=== PATIENT | male | born 1950 | race Caucasian/White ===

== ENCOUNTER 2024-05-02 11:21 | Day surgery (SDC) | payer MEDICARE, OTHER, SELFPAY ==
[2024-05-02] VITALS (7 sets, daily range): BP systolic 117–159; BP diastolic 50–77; BMI 25.9
[2024-05-02] MEDS: NSS 224 ML IV (12:06)
[2024-05-02 13:41] LABS: ACT-LR - POC 253 Seconds (116-155)
[2024-05-02] MEDS: NSS 1000 IV (14:03)
--- NOTE | 2024-05-02 14:21 | ITS.CL.CATH ---
Fitness Instructor - Catheterization
Cardiac Catheterization
Procedure Report:
CARDIAC CATHETERIZATION REPORT
Date of Procedure: 05/02/2024
Referring: Ye Majano M.D.
INDICATION: Multivessel coronary artery disease, ostial LAD stenosis.
PROCEDURE:
1. Left heart catheterization
2. Coronary angiography.
3. Successful IFR of the LAD.
A total of 33 minutes of procedural/moderate sedation was utilized. An independent medical record consultant was present to assist with and help manage the patient's level of consciousness and physiologic status.
ACCESS:
1. 6 [place]ican right radial artery using a modified Seldinger technique under ultrasound guidance. Ultrasound image obtained.
CATHETERS:
1. 5 [place]ican JR4.
2. 5 Mozambican JL 3.5 guiding catheter.
HEMODYNAMIC DATA
Weight (kg): 74.8
AO (s/d/x, mmHg): 122/62/85
LV (s/x mmHg): 124/11
LEFT VENTRICULOGRAPHY: Not performed.
CORONARY ANGIOGRAPHY
Dominance: Left.
Left Main: Short, broad, trifurcating vessel. There is no coronary artery disease.
LAD: Relatively small size vessel giving off 2 diagonals. The second diagonal is a significant vessel that supplies the majority of the anterolateral wall. There is a 70%, napkin ring lesion in the ostium of the artery. The proximal vessel is
densely calcified. There is an additional, 40% lesion in the proximal/mid vessel spanning the origin of the first diagonal. There is an 80-90% lesion in the origin of the major second diagonal.
Ramus: Small, diminutive vessel.
Circumflex: Large size, dominant vessel giving rise to 3 obtuse marginals then ending as a large left posterior descending artery that wraps around the apex. OM1 is a large vessel which bifurcates into an upper and lower branch and supplies the
majority of the lateral wall. There is a napkin ring, 80% lesion in the origin of the upper branch. There are stuttering, 80-90% lesions in the proximal margin of the lower branch of OM1. There is a subtotal, 90% lesion in the proximal margin of
the LPDA. There is a patent stent in the proximal circumflex.
RCA: Small size, nondominant vessel which is diffusely diseased in its proximal and midportion.
INTERVENTION(S)
1. Successful IFR of the LAD, demonstrating occlusive disease (IFR = 0.88).
Narrative:
The decision was made to perform physiologic testing. The diagnostic catheter was removed over a wire and exchanged for a(n) 5 Mozambican JL 3.5 guiding catheter. The guiding catheter was advanced into the ascending aorta and seated in the left main
coronary artery. Additional heparin was given to obtain an ACT greater than 250 seconds. An iFR wire was zeroed outside of the body, then inserted into the guiding sheath. The wire was advanced and the transducer was normalized just outside of the
guiding catheter tip. The wire was advanced into the mid LAD. Three iFR measurements were taken. The lesion was determined to be occlusive (0.88).
Closure Device: Vascular band.
Radiation (mGy): 276.34
DAP (cm2.Gy): 21.5493
Fluoroscopy time (minutes): 7.8
CONCLUSIONS
1. Left dominant circulation with an occlusive, 70% napkin ring lesion in the ostium of the LAD (IFR = 0.88) with an additional 40% lesion in the proximal and mid vessel and an 80-90% lesion in the origin of the major second diagonal, a patent
stent in the proximal circumflex, a napkin ring, 80% lesion in the origin of the upper branch of OM1, stuttering 80-90% lesions in the proximal margin of the lower branch of OM1 and a subtotal, 90% lesion in the proximal margin of the LPDA.
2. Normal filling pressures (LVEDP = 11 mmHg at 74.8 kg).
RECOMMENDATIONS:
1. Expectant management after cardiac catheterization via right radial approach.
2. Limited weight bearing on the right for one week.
3. Consultation with CT surgery regarding optimal revascularization strategy.
4. Continue aggressive secondary prevention. High-dose, high potency statin. Goal LDL <55.
5. Guideline directed medical therapy as hemodynamics will tolerate.
6. Stable for outpatient follow-up.
Copy to: Ye Majano M.D., Pan Moore D.O.
Kale Salamanca DO, FACC, FACP
== END 2024-05-02 17:00 | disposition home or self-care (01) ==
LOC: CATH 11:21
PROVIDERS: ATTENDING PHYSICIAN Internal Medicine Cardiovascular Disease; FAMILY PHYSICIAN Family Medicine; OTHER PHYSICIAN Internal Medicine Cardiovascular Disease
DX: I25.10 Atherosclerotic heart disease of native coronary artery without angina pectoris (principal); Z95.5 Presence of coronary angioplasty implant and graft; I25.84 Coronary atherosclerosis due to calcified coronary lesion
CPT/HCPCS: 93799; 99152; 99153; 85347; 93005; 93458; C1769; C1894; Q9967

== ENCOUNTER 2024-06-28 04:55 | Inpatient (IN) | payer MEDICARE, OTHER, SELFPAY ==
[2024-05-28 12:19] VITALS: BMI 26.0
[2024-05-28 13:03] LABS: Urine Albumin 1+ (Neg - Trace); Urine Bilirubin Negative (Negative); Urine Character Clear (Clear); Urine Color Yellow; Urine Glucose Negative (Negative); Urine Ketone 2+ (Negative); Urine Leukocyte 1+ (Negative); Urine Nitrite Negative (Negative); Urine Occult Blood Negative (Negative); Urine Specific Gravity 1.015 (<1.030); Urine Urobilinogen Negative (Neg - 1+)
[2024-05-28 13:11] LABS: INR 1.01; PT 13.6 Sec (11.4-14.6)
[2024-05-28 13:12] LABS: APTT 27.4 Sec (23.4-35.0)
[2024-05-28 13:26] LABS: ALT (SGPT) 48 U/L (0-50); AST (SGOT) 38 U/L (17-59); Albumin 4.3 g/dl (3.5-5.0); Alkaline Phosphatase 104 U/L (38-126); Blood Urea Nitrogen 19 mg/dl (9-20); Calcium 9.7 mg/dl (8.4-10.2); Carbon Dioxide 25 mmol/L (22-30); Chloride 100 mmol/L (98-107); Direct Bilirubin 0.2 mg/dl (0.0-0.4); Estimated Creatinine Clearance 76 ml/min; Glucose 85 mg/dl (70-99); Potassium 4.9 mmol/L (3.5-5.1); Sodium 134 mmol/L (135-145); Total Bilirubin 0.9 mg/dl (0.2-1.3); Total Protein 7.6 g/dl (6.3-8.2); eGFR > 60.00
[2024-05-28 13:28] LABS: % Basophils 0.1 % (0-2); % Eosinophils 1.5 % (0-6); % Immature Granulocytes 0.4 % (0-0.5); % Lymphocytes 26.6 % (20.5-51.1); % Monocytes 8.2 % (1.7-9.3); % Neutrophils 63.2 % (42.2-75.2); Absolute Eosinophils 0.1 10^3/uL (0-0.7); Absolute Lymphocytes 1.8 10^3/uL (1.2-3.4); Absolute Monocytes 0.6 10^3/uL (0.1-0.6); Absolute Neutrophils 4.2 10^3/uL (1.4-6.5); Hematocrit 43.6 % (39.0-52.0); Hemoglobin 14.7 g/dL (13.0-18.0); Mean Corp Hgb Conc. 33.7 g/dL (33.0-37.0); Mean Corpuscular Hgb 32.2 pg (27.0-31.0); Mean Corpuscular Volume 95.6 fL (80.0-94.0); Nucleated Red Blood Cells % 0 % (-); Platelet Count 224 10^3/uL (130-400); Red Blood Cell Count 4.56 10^6/uL (4.70-6.10); Red Cell Dist. Width 12.9 % (11.5-14.5); White Blood Cell Count 6.7 10^3/uL (4.8-10.8)
[2024-05-28 13:52] LABS: Urine Bacteria Few (Negative); Urine Red Blood Cell 0-2 /HPF (0-2)
[2024-05-28 13:53] LABS: Urine Granular Cast 0-2 /LPF (0); Urine Hyaline Cast 0-2 /LPF (0-2); Urine Mucus Few
--- NOTE | 2024-05-28 14:30 | CM ---
Met with and Mrs. Corral in [facility]. He states prior to admission he resides with his spouse in a two story home with one step to enter. He states he has a full flight of steps to get to bedroom/full bathroom. He states he has a powder room on
the first floor. He states prior to admission he was independent with ambulation and adls. He states he does not have any DME in the home. He states he has a prescription plan with [employer]. He states his spouse will be home to assist in his care
if needed. The discharge plan is to return home with his spouse and Transitional Care Nurse when medically stable.
We reviewed pre-op and post-op routines. We reviewed the shower instructions. He has the soap,written instructions and the Cardiothoracic Surgery Educational Booklet. We reviewed restrictions including sternal precautions and driving
restrictions. We also discussed a home visit by the Transitional Care Nurse. He is agreeable to a home visit. The plan is for CABG on June.
[2024-06-19 11:48] VITALS: BMI 26.0
[2024-06-19 12:24] LABS: Urine Albumin 1+ (Neg - Trace); Urine Bilirubin Negative (Negative); Urine Character Clear (Clear); Urine Color Yellow; Urine Glucose Negative (Negative); Urine Ketone Negative (Negative); Urine Leukocyte Negative (Negative); Urine Nitrite Negative (Negative); Urine Occult Blood Negative (Negative); Urine Specific Gravity 1.015 (<1.030); Urine Urobilinogen Negative (Neg - 1+)
[2024-06-19 12:33] LABS: % Basophils 0.2 % (0-2); % Immature Granulocytes 0.5 % (0-0.5); % Lymphocytes 17.1 % (20.5-51.1); % Monocytes 8.4 % (1.7-9.3); % Neutrophils 72.8 % (42.2-75.2); Absolute Eosinophils 0.1 10^3/uL (0-0.7); Absolute Immature Granulocytes 0.1 10^3/uL (0-0.05); Absolute Lymphocytes 2.3 10^3/uL (1.2-3.4); Absolute Monocytes 1.1 10^3/uL (0.1-0.6); Absolute Neutrophils 9.7 10^3/uL (1.4-6.5); Hematocrit 43.3 % (39.0-52.0); Hemoglobin 14.4 g/dL (13.0-18.0); Mean Corp Hgb Conc. 33.3 g/dL (33.0-37.0); Mean Corpuscular Hgb 32.1 pg (27.0-31.0); Mean Corpuscular Volume 96.4 fL (80.0-94.0); Mean Platelet Volume 9.8 fL (7.4-10.4); Nucleated Red Blood Cells % 0 % (-); Platelet Count 225 10^3/uL (130-400); Red Blood Cell Count 4.49 10^6/uL (4.70-6.10); White Blood Cell Count 13.2 10^3/uL (4.8-10.8)
[2024-06-19 12:44] LABS: ALT (SGPT) 56 U/L (0-50); AST (SGOT) 48 U/L (17-59); Albumin 4.2 g/dl (3.5-5.0); Alkaline Phosphatase 125 U/L (38-126); Blood Urea Nitrogen 24 mg/dl (9-20); Carbon Dioxide 28 mmol/L (22-30); Chloride 99 mmol/L (98-107); Direct Bilirubin 0.2 mg/dl (0.0-0.4); Estimated Creatinine Clearance 67 ml/min; Glucose 102 mg/dl (70-99); Potassium 5.3 mmol/L (3.5-5.1); Sodium 134 mmol/L (135-145); Total Bilirubin 0.6 mg/dl (0.2-1.3); Total Protein 7.6 g/dl (6.3-8.2); eGFR > 60.00
[2024-06-19 12:58] LABS: INR 0.93
[2024-06-19 13:54] LABS: Urine Bacteria Few (Negative); Urine Red Blood Cell 0-2 /HPF (0-2); Urine Sperm Seen; Urine White Cell 0-2 /HPF (0-5)
--- NOTE | 2024-06-19 14:06 | CM ---
Chart reviewed. Met with the patient and again in PAT. Reviewed preoperative and postoperative instructions and restrictions, along with showering guidelines. Patient has soaps already at home and refused 2 more. Patient is independent of
ADLS, lives with his in a 2 STH, 2 ORLIN, 0 DME. Patient is agreeable to a home visit by CT Transitional RN. Plan is for the patient to return home with CT Transitional RN.
[2024-06-28] VITALS (20 sets, daily range): BP systolic 81–146; BP diastolic 48–85; BMI 25.5
[2024-06-28] MEDS: LOPRESSOR 25 MG PO (05:27)
[2024-06-28] MEDS: PROTONIX 40 MG PO (05:27)
[2024-06-28] MEDS: MAGNESIUM OXIDE 500 MG PO (05:27)
[2024-06-28] MEDS: BACTROBAN 2% OINTMENT 1 APPLIC NASAL ×2 (05:28→20:51)
--- NOTE | 2024-06-28 06:00 | PTCARENOTE ---
pt arrived to CVICU for SDA CABG with dr Majano. pt was clipped and prepped, CHG clothes used, x2 CHG showers at home confirmed. all admission question answered and home meds reviewed. all jewelry removed. labs drawn and sent. pre op med given.
awaiting CVOR.
--- NOTE | 2024-06-28 06:02 | W.CVOR.SURPR ---
CVOR Surgeon Immed Pre Op
-
I have examined this patient prior to performance of the scheduled procedure.
The patient's condition is unchanged from the time of the dictated/written History and
Physical and the patient is able to undergo the scheduled procedure.
CABG + MATTHEW Clip
[2024-06-28 07:15] LABS: ACT+ - POC 101 Seconds (82-134)
[2024-06-28 07:26] LABS: Urine Albumin Negative (Neg - Trace); Urine Bilirubin Negative (Negative); Urine Character Clear (Clear); Urine Color Yellow; Urine Glucose Negative (Negative); Urine Ketone Negative (Negative); Urine Leukocyte Negative (Negative); Urine Nitrite Negative (Negative); Urine Occult Blood 1+ (Negative); Urine Urobilinogen Negative (Neg - 1+)
[2024-06-28 07:47] LABS: Urine Squamous Cell 0-2 /LPF (Few); Urine White Cell 0-2 /HPF (0-5)
[2024-06-28 08:41] LABS: ACT+ - POC 650 Seconds (82-134)
--- NOTE | 2024-06-28 09:09 | CM ---
Patient in OR today for CT Surgery.
Reviewed initial assessment. Pt. resides w/ spouse in a private, 2 st home w/ 2 ORLIN. Functionally, patient is indep. w/ ADLs, mobility without the use of any assisted device.
Antic. DC plan is for home w/ CT Transitional Care RN.
CM to follow.
[2024-06-28 09:28] LABS: ACT+ - POC 574 Seconds (82-134)
[2024-06-28 10:14] LABS: ACT+ - POC 502 Seconds (82-134)
[2024-06-28 10:29] LABS: ACT+ - POC 540 Seconds (82-134)
[2024-06-28 10:36] LABS: B.E. - POC 2.1 mmol/L; Glucose - POC 147 mg/dl (70-99); HCO3 - POC 27 mmol/L (21-28); Hematocrit - POC 27 % PCV (42-52); Hemodilution- POC Yes; Hemoglobin Calculated - POC 9.3; Ionized Calcium - POC 1.09 mmol/L (1.15-1.33); Lactate - POC 0.35 mmol/L (0.36-0.75); O2 Saturation %Calculated-POC 99.9 % (94-98); PCO2 - POC 40 mmHg (35-48); PO2 - POC 246 mmHg (83-108); POC Comment CPB; Potassium - POC 4.8 mmol/L (3.5-5.1); Sodium - POC 139 mmol/L (136-145); Specimen Type - POC Arterial; pH - POC 7.43 (7.35-7.45)
[2024-06-28 11:16] LABS: B.E. - POC 4.6 mmol/L; Glucose - POC 139 mg/dl (70-99); HCO3 - POC 31 mmol/L (21-28); Hematocrit - POC 25 % PCV (42-52); Hemodilution- POC Yes; Hemoglobin Calculated - POC 8.6; Ionized Calcium - POC 1.05 mmol/L (1.15-1.33); Lactate - POC < 0.30 mmol/L (0.36-0.75); PCO2 - POC 55 mmHg (35-48); PO2 - POC 456 mmHg (83-108); POC Comment CPB; Potassium - POC 5.3 mmol/L (3.5-5.1); Sodium - POC 137 mmol/L (136-145); Specimen Type - POC Arterial; pH - POC 7.36 (7.35-7.45)
[2024-06-28 11:16] LABS: B.E. - POC -1.9 mmol/L; Glucose - POC 97 mg/dl (70-99); HCO3 - POC 24 mmol/L (21-28); Hematocrit - POC 35 % PCV (42-52); Hemodilution- POC No; Hemoglobin Calculated - POC 11.7; Ionized Calcium - POC 1.22 mmol/L (1.15-1.33); Lactate - POC < 0.30 mmol/L (0.36-0.75); O2 Saturation %Calculated-POC 99.9 % (94-98); PCO2 - POC 42 mmHg (35-48); PO2 - POC 337 mmHg (83-108); POC Comment PRE; Potassium - POC 4.1 mmol/L (3.5-5.1); Sodium - POC 142 mmol/L (136-145); Specimen Type - POC Arterial; pH - POC 7.36 (7.35-7.45)
[2024-06-28 11:22] LABS: B.E. - POC -1.6 mmol/L; Glucose - POC 149 mg/dl (70-99); HCO3 - POC 23 mmol/L (21-28); Hematocrit - POC 28 % PCV (42-52); Hemodilution- POC Yes; Hemoglobin Calculated - POC 9.4; Ionized Calcium - POC 1.03 mmol/L (1.15-1.33); Lactate - POC 0.43 mmol/L (0.36-0.75); O2 Saturation %Calculated-POC 99.8 % (94-98); PCO2 - POC 38 mmHg (35-48); PO2 - POC 249 mmHg (83-108); POC Comment WARM; Potassium - POC 4.5 mmol/L (3.5-5.1); Sodium - POC 143 mmol/L (136-145); Specimen Type - POC Arterial; pH - POC 7.39 (7.35-7.45)
[2024-06-28 11:27] LABS: ACT+ - POC 93 Seconds (82-134)
[2024-06-28 11:57] LABS: B.E. - POC -2.2 mmol/L; Glucose - POC 144 mg/dl (70-99); HCO3 - POC 24 mmol/L (21-28); Hematocrit - POC 29 % PCV (42-52); Hemodilution- POC Yes; Hemoglobin Calculated - POC 9.7; Ionized Calcium - POC 1.27 mmol/L (1.15-1.33); Lactate - POC 0.68 mmol/L (0.36-0.75); O2 Saturation %Calculated-POC 99.9 % (94-98); PCO2 - POC 45 mmHg (35-48); PO2 - POC 323 mmHg (83-108); POC Comment POST; Potassium - POC 3.9 mmol/L (3.5-5.1); Sodium - POC 142 mmol/L (136-145); Specimen Type - POC Arterial; pH - POC 7.33 (7.35-7.45)
--- NOTE | 2024-06-28 12:19 | W.PN.CT.SURG ---
CT Surgery Operative Note
-
CARDIAC SURGERY OPERATIVE REPORT
Preoperative Diagnosis: Multivessel Coronary Artery Disease with Proximal LAD
Postoperative Diagnosis: Same
Procedure(s) Performed:
1. Standard sternotomy with aortic and right atrial cannulation
2. Internal mammary artery harvesting
3. Coronary artery bypass grafting x 5 (In situ DIETRICH to LAD proper sequential to largest diagonal distally, Ao to RSVG to both OM daughter branches, Ao to RSVG to LPDA)
4. Left atrial appendage exclusion [35 mm clip]
5. Endoscopic vein harvesting of right lower extremity
6. Placement temporary ventricular pacing wire
7. Coronary endarterectomy of the mid LAD
8. Transesophageal echocardiography
Date of Surgery: 06/28/2024
Comorbidities:
1. Significant multivessel coronary disease involving the proximal LAD
2. Strong family history for coronary artery disease
3. Cataracts
4. PVCs
5. Emphysema
6. Hyperlipidemia
7. Hypertension
8. Melanoma of skin under left eye
Attending Surgeon: Ye Majano MD, MS
Assistants: Shefali Henderson PA-C (present and necessary to assistant health educator, endoscopic vein harvest, retraction, suction, exposure, suture management, and wound closure under my direction) and Sukhdeep Paz MD (Cardiac Surgery Corporate Trainer)
Anesthesiology: Rojas Ta MD and Brandi Coleman CRNA
Scrub and Circulating RNs: Gildardo Mena, FREDIS, Nicola Peng RN
Shop Teacher: Michael Infante CCP
Anesthesia: GETA
EBL: per perfusion records
Products: None
CPB Time: 128 minutes
Aortic Cross Clamp Time: 116 minutes
Indication(s) for Procedures: This is a 74-year-old male who was incidentally found to have significant multivessel coronary disease. His outpatient intervention clinical lab clerk opted to attempt stenting his proximal/mid circumflex and then the distal
L PDA branch was unsuccessful. He came to me as a second opinion. Multidisciplinary team discussion with our invention clinical lab clerk and the consensus that he should have IFR evaluation of his proximal LAD. Even though his LAD is a trifurcating
vessel it provides significant diagonals down towards the apex. His left heart cath performed here demonstrated IFR proven LAD disease proximally and so he was offered surgical revascularization. He also has a significant family history for
coronary artery disease requiring intervention in the form of surgery.
Conduit(s) Quality:
DIETRICH -excellent/good quality vessel with good flow
RSVG -good/there were some changes in size and caliber but overall minimal varicosities and minimal thickening
Target(s) Quality:
LPDA -excellent/large sized target with excellent flow with test dosing of antegrade cardioplegia yielding approximately 50 cc a minute at a pressure of 80, flow probe assessment yielded a mean flow of approximately 23 with a pulsatile index of 3.4
OM branches x 2-excellent/the vein graft had a natural branch and so we use this number to bypass both daughter branches of the OM vessel, test dose of antegrade yielded a mean flow of approximately 45 cc a minute at a pressure of 80 mmHg, flow
probe assessment yielded a mean flow of 28 cc a minute with a pulsatile index of 3.4
LAD -average to marginal/the proximal LAD/mid LAD was dissected in order to supply flow to the other diagonal branches, this had severe circumferential calcification so an endarterectomy was performed in order to perform a sequential bypass graft.
The underbelly of the DIETRICH was incised and a axej-ui-rdzf anastomosis was created. Next the largest diagonal and heading towards the apex was dissected and the distal end of the DIETRICH was performed with 7-0 Prolene in a running fashion to this.
There was excellent visual flow in the LAD with a mean flow on flow probe of approximately 10.8 with a pulsatility index of 3.4. There was some bleeding around the sequential anastomosis to the LAD proper with endarterectomy was performed and so
several repair stitches were required here as well as packing of some hemostatic agent.
Findings: His left ventricular ejection fraction preoperatively was normal at 60% with no significant regional wall motion abnormality. Following surgery his EF remained the same at 60% with no new regional wall motion abnormalities. His distal
targets were of appropriate size, in order to provide the entire tree of his trifurcating LAD system, I opted to perform a sequential graft to the large diagonal distally and then to the midportion of the LAD proximally. The DIETRICH was harvested in a
skeletonized fashion. Following bypass grafting, test dose cardioplegia was given down each distal and confirmed patency and hemostasis. Flow probe assessment of all grafts demonstrated appropriate and acceptable flows with low pulsatility indices.
The sequential graft to the mid LAD did have significant circumferential calcification requiring a coronary endarterectomy. There was some oozing from this fragile tissue and so several repair stitches were performed here in addition to packing of
hemostatic agents. He did not require any blood products at the end of the case, did not require any inotropic support and was back in sinus rhythm and not requiring pacing support. His left atrial appendage was verified to be free of any thrombus
or debris preoperatively and found to be totally occlusive postoperatively with a 35mm clip. The ligament of Maxwell was also divided as part of this.
Description of Procedure: The patient was taken to the operating room. Their identity and procedure to be performed were verified and they were positioned supine on the operating table. Induction via general anesthesia with endotracheal intubation
was performed and central venous access and arterial monitoring were inserted. A preoperative transesophageal echocardiogram was performed to assess cardiac function and valvular function. The patient was then prepped and draped from chin to feet in
a sterile fashion. A preoperative time-out was performed with all members of the team present. A midline chest incision was performed along with median sternotomy. Simultaneous endoscopic access of the right lower extremity for saphenous vein
harvest was obtained along with administration of an initial 5,000 units of IV heparin. A RulTract sternal retractor was positioned to exposure the left internal mammary bed. The mammary was harvested and found to have good flow. A bulldog clamp was
applied to the distal end of the mammary after dividing it. It was wrapped in a papaverine soaked RayTec and replaced back into the left hemithorax. The RulTract was exchanged for a median sternal retractor. The innominate vein was isolated. Full
heparinization was given (a total of 50,000 units). We created a pericardial well. The aortic cannulation site was chosen where it was soft, pliable, and free of calcium. Cannulation was performed with an arterial cannula in the ascending aorta and
a triple-stage venous cannula through the right atrial appendage. The arterial cannula line had an appropriate bounce and correlating pressures with test dosing. Next, a root vent/antegrade cannula was inserted into the ascending aorta. The ACT was
confirmed to be over 400 and retrograde autologous priming was performed before commencing cardiopulmonary bypass. The pulmonary artery was away from the aorta to facilitate a clamp site. The aortic cross-clamp was placed after decreasing
the flow on the bypass and mean arterial pressure. A total of 1.2L initial dose of antegrade Del-Nido cardioplegia solution was given and planned for re-dosing every 75 minutes as necessary. There was rapid electro-mechanical arrest of the heart at
250 cc of cardioplegia. The left ventricle was observed for distention on echocardiogram and manual palpation. Cold slush was placed into a sponge and topically on the RV while we systemically cooled to 34 degrees centigrade. Once the heart was
fully arrested it was rotated medially and the ligament of Maxwell was divided using electrocautery. The left atrial appendage was verified to be free of any thrombus and then clipped flush the base with a 35 mm device.
I positioned the heart to expose the LPL/LPDA. A p[place] blade was used to expose the coronary and perform the arteriotomy. Coronary Freeman scissors were used to enlarge the incision. The saphenous vein was trimmed and beveled to an appropriate size.
The distal anastomosis was performed using 7-0 prolene in an end-to-side fashion. Antegrade cardioplegia was administered into the graft. Appropriate hemostasis and flow were confirmed. The graft was measured for length to the aorta and cut. A
suitable site on the obtuse marginal was chosen, there are 2 sizable branches here to the OM, and so I plan to perform a sequential graft. We dissected and prepared the distal target in a similar fashion. An end-to-side anastomosis was created with
a 7-0 prolene. Antegrade cardioplegia was administered into the graft. Appropriate hemostasis and flow were confirmed. There was a natural branch vessel off the vein graft and so the second daughter branch of the OM graft was anastomosed in an
end-to-side fashion using 7-0 Prolene. A bulldog clamp was placed on the distal sequential graft and flow was verified down the new anastomosis. The graft was measured for length to the aorta and cut. A suitable target on the mid left anterior
descending was identified. We dissected and prepared the distal target in a similar fashion. It was heavily calcified circumferentially and although a lumen was identified, the calcium was extremely hard and unable to pass the needle through. A
localized coronary endarterectomy was performed here. The underbelly of the DIETRICH was then incised and a muyg-de-hzuw anastomosis was created with 7-0 Prolene. Several reinforcement sutures were placed around the anastomosis. The distal end of the
DIETRICH graft was then measured in order to accommodate a distal anastomosis to the large diagonal branch heading towards the apex. Left small arteriotomy was created and a jfyl-jz-efjt anastomosis was created distally with 7-0 Prolene in a running
fashion. We temporarily released the bulldog clamp on the mammary to inspect flow. Perfusion to the LAD territory was visualized and hemostasis was confirmed. The bull clamp was replaced on the mammary. The heart was filled and the root was
distended with antegrade cardioplegia to make final assessment of graft length and orientation. We created 2 aortotomies using a #11 blade then a 4.0mm aortic punch. The proximal anastomoses were created in an end-to-side fashion using 7-0 prolene.
At the the same time, we re-warmed to 36.5 degrees centigrade. The bulldog clamp was removed from the mammary. Temporary bipolar ventricular pacing wires were placed on the base of the right ventricle. The patient was placed in a Trendelenburg
position and flows on bypass were lowered. The aortic cross clamp was removed and flows were slowly brought back up. All bypass grafts were inspected and were free from kinking or twisting. The distal and proximal anastomoses appeared hemostatic
after packing with some hemostatic agent. Once transesophageal echocardiography appeared satisfactory for de-airing, the flows were temporarily lowered for root vent removal. After verifying acceptable parameters, we initiated weaning from
cardiopulmonary bypass. Once we were off cardiopulmonary bypass, the venous cannula was clamped and removed. A test dose of protamine was administered and the patient was monitored for any adverse reaction before resuming protamine. Once half of the
protamine dose was delivered, pump suckers were turned off and the systolic blood pressure was lowered for aortic decannulation. The aortic cannula was removed and pursestrings were tied down. All cannulation sites were oversewn with a 4-0 prolene.
The mammary bed was inspected and hemostasis was confirmed. Once the mediastinum was hemostatic, 19Fr Mike drain was placed in the left pleural cavity and two 24Fr Mike drains were placed within the pericardium. The sternum was approximated with 4
#7 single and 3 #8 double stainless steel wires. Fascia was approximated with #1 vicryl suture. The subcutaneous, dermis and epidermis were closed in layers in a running fashion. The skin wound was cleansed and dressed.
All instrument, sponge, and needle counts were confirmed to be correct x 2 at the end of the operation. The patient was transferred to the cardiac intensive care unit in critical but stable condition.
I, Dr. Ye Majano, was present, scrubbed for, and performed all critical elements of this procedure.
Ye Majano MD, MS
Cardiothoracic Surgeon
[facility]
This operative dictation was created using the [employer] dictation system. Please excuse any grammatical, typographical, or 'sound alike' errors
[2024-06-28 12:42] LABS: Glucose - Point of Care 127 mg/dl (70-99)
[2024-06-28] MEDS: ANCEF 10 IV ×2 (12:53)
[2024-06-28] MEDS: NEURONTIN PO ×3 (12:53→22:08)
[2024-06-28] MEDS: TYLENOL PO (12:54)
[2024-06-28] MEDS: NSS 500 IV (12:54)
[2024-06-28 12:55] LABS: B.E. -0.5 mmol/L; HCO3 24.9 mmol/L (21-28); O2 Saturation % 99.4 % (94-98); PCO2 43 mmHg (35-48); PO2 190 mmHg (83-108); Potassium 3.7 mMOL/L (3.5-5.1); Sodium 137 mMOL/L (136-145); pH 7.37 (7.35-7.45)
[2024-06-28 12:57] LABS: Hematocrit 28.1 % (39.0-52.0); Hemoglobin 9.9 g/dL (13.0-18.0); Platelet Count 145 10^3/uL (130-400)
--- NOTE | 2024-06-28 13:00 | PTCARENOTE ---
Received pt from CVOR team @ 1230. Intubated and sedated. Placed on SIMV 60% rate 14 tv 500 psv 5 peep 5 pulse ox 99%. ETT 8.0/23 @ lip. NSR on monitor. RIJ cordis with SLICC. L radial A line transducing. Lines leveled, recalibrated and
flushed. Epicardial wire to back up of vvi 70. No pacing noted at present. Chest tubes x 3 to - 20 cm suction. No air leak or crepitus noted. Abdomen soft , hypo active bowel sounds noted. Alarcon draining clear yellow urine. R groin puncture
site well approximated. Rt SVG site also well approximated with Jose wrap intact. Pulses palpable. Drips infusing on arrival precedex. Plan discussed with CT team
[2024-06-28 13:02] LABS: INR 1.38; PT 17.2 Sec (11.4-14.6)
[2024-06-28 13:03] LABS: APTT 28.1 Sec (23.4-35.0)
[2024-06-28 13:11] LABS: Blood Urea Nitrogen 20 mg/dl (9-20); Estimated Creatinine Clearance 87 ml/min; Glucose 121 mg/dl (70-99); Magnesium 2.7 mg/dl (1.6-2.3)
--- NOTE | 2024-06-28 13:21 | W.PN.CD ---
Addendum entered and electronically signed by Andre Young MD 06/28/24 16:22:
74 yo male with PMH of CAD, HTN, hyperlipidemia admitted s/p complex CABG. Weaning sedation and vent. Exam with RRR, no murmurs, no edema. Tele and EKG: NSR.
Hopeful for extubation. ASA, statin, metoprolol.
Original Note:
Today's Communication / Plan
-
Follow telemetry
Post op mgmt per CT Surgery
Impression / Plan
-
I/P: 74M with HTN, HLD, emphysema, melanoma, current smoker, and strong family history of coronary artery disease who had an abnormal stress test which prompted cardiac catheterization which found multivessel disease. He is here for CABG.
Outpatient line dancer: Dr. Zarco
CAD S/P CABG x 5 (In situ DIETRICH to LAD proper sequential to largest diagonal distally, Ao to RSVG to both OM daughter branches, Ao to RSVG to LPDA) with MATTHEW clip by Dr. Majano 06/28/2024
-Pre LVEF 60%, post 60%
-The sequential graft to the mid LAD did have significant circumferential calcification requiring a coronary endarterectomy
-EKG with LAFB and prolonged QT
-Follow telemetry
HTN
-Requiring no vasopressor support
-Resume metoprolol when able.
HLD, goal LDL < 55, continue rosuvastatin 20mg
Smoker, cessation recommended
SUBJECTIVE:
Operative notes reviewed.
Intubated and sedated.
Physical Exam
Vital Signs/Labs
Vital Signs
Temp Pulse Resp BP Pulse Ox
96.9 F L 64 14 97/64 99
06/28/24 13:00 06/28/24 13:05 06/28/24 13:05 06/28/24 13:00 06/28/24 13:05
06/27/24 06/28/24 06/29/24
06:59 06:59 06:59
Actual Weight 73.9 kg
06/28/24 12:39
PT 17.2 Sec (11.4-14.6) H 06/28/24 12:39
INR 1.38 06/28/24 12:39
APTT 28.1 Sec (23.4-35.0) 06/28/24 12:39
Magnesium 2.7 mg/dl (1.6-2.3) H 06/28/24 12:39
Physical Exam
Constitutional: No acute distress and Comfortable
EENT: Anicteric and Moist mucous membranes
Cardiovascular: Rhythm & rate is regular, Pedal edema is absent and S1S2 is normal
Respiratory: Lungs clear to auscul.
GI: Soft and Distention absent
Neuro/Psych: Other (sedated)
Other: Skin (warm and dry)
Data Reviewed
-
Date of Service: June 28, 2024
[2024-06-28] MEDS: LR 250 ML IV (13:30)
[2024-06-28] MEDS: KCL 50 IV ×2 (13:32→14:37)
[2024-06-28 13:38] LABS: Glucose - Point of Care 114 mg/dl (70-99)
--- NOTE | 2024-06-28 13:38 | W.PN.UPDATE ---
Update Note
Progress Note Update
74-year-old male was electively admitted on 06/28/2024 for CABG due to multivessel coronary disease.
IV fluids: 2400
U.O.:� 450
UF:� 1200
Blood:� none
Wires:� V-wires
Inotropes:� none
Pressors:� levophed @ 2
Sedatives:� Precedex
�
NEURO: sedated, pupils +2mm B/L
RESP: #8OT @26cm> 500/60%/14/5. Lungs clear B/L. 2 mediastinal (5cc on arrival) and L pleural (0cc on arrival) chest tubes to -20cm suction. Sanguineous drainage, no air leak, no crepitus
CV: RRR +S1, S2, no S3, no�rub, no murmur. Dermabond to median sternotomy. RIJ w/[place] intact
ABD: round, soft, no BS
EXT: no edema, +2/4 DP pulses B/L, no femoral bruit, RLE SHERLYN wrap intact; left radial A-line intact
: Alarcon with clear yellow urine
�
A/P: POD #0 s/p CABG x 5 (DIETRICH to LAD proper sequential to largest diagonal distally, Ao to RSVG to both OM daughter branches, Ao to RSVG to LPDA), left atrial appendage exclusion [35 mm clip]
DARINEL: report pending�
- wean and extubate
- keep SBP 90-110mmHg
# CAD
- will require ASA, Plavix (on Effient @ home), high intensity statin (was on Crestor 5mg daily), beta-meredith
�
# acute surgical blood loss anemia-expected
- trend CBC
�
�# mild emphysema (FEV1 53%)/ current tobacco abuse
- offer Nicotine patch
- not on bronchodilators at home
- accept SPO2 90% or greater for weaning oxygen
- need counseling for lifelong tobacco cessation
�
--- NOTE | 2024-06-28 14:11 | CON.INTV ---
Consultation
Consultation Request
Date/Time Consultation Requested: 06/28/2024
Date/Time Consultation Performed: 06/28/2024
Requesting Provider: Ye Majano
Performing Provider: Conor Nowak
Reason for Consultation: POst CABG
Medical History
-
Chief Complaint: Shortness of breath
History of Present Illness:
Patient is a 74 old male with known history of multivessel coronary artery disease with complains of shortness of breath with exertion which had progressed over the year. Patient has longstanding history of smoking and currently active smoker.
Patient had cardiac workup performed last year and had PCI performed in March 2024, she subsequently followed with cardiology and CT surgery service. Patient was recommended to have coronary artery bypass graft and had the procedure performed on
06/28. Post surgery, patient was transferred to CVICU, intubated and intermittently needing pressors. 3D Animator service was consulted for further management.
Past medical history. Hyperlipidemia, hypertension, coronary artery disease, history of melanoma, anxiety, questionable emphysema
Past surgical history. Cataract surgery, coronary artery disease with PCI in March 2024
Family history. Father had emphysema and heart disease, mother also had emphysema.
Social history. Current smoker, will get more information regarding his smoking history once patient is extubated, awake alert. Current information is gathered from patient's chart.
Allergies / Home Medications
Allergies
Allergy/AdvReac Type Severity Reaction Status Date / Time
No Known Allergies Allergy Verified 06/14/24 09:32
Home Medications
�Medication �Instructions �Recorded �Confirmed �Last Taken �Type
metoprolol succinate 25 mg 25 mg PO DAILY 05/02/24 06/28/24 06/27/24 12:00 History
tablet,extended release 24 hr
prasugrel HCl 10 mg tablet 10 mg PO DAILY 05/02/24 06/28/24 06/22/24 12:00 History
rosuvastatin 5 mg tablet 5 mg PO DAILY 05/02/24 06/28/24 06/27/24 12:00 History
aspirin 81 mg capsule 81 mg PO DAILY 02/06/28/24 06/27/24 12:00 History
cholecalciferol (vitamin D3) 25 25 mcg PO DAILY 05/23/24 06/28/24 06/24/24 12:00 History
mcg (1,000 unit) capsule (Vitamin
D3)
Review of Systems
-
Unable to Obtain full review of systems at this time due to: Patient Intubation
Vitals / Labs / Diagnostic Testing
Vital Signs
Temp Pulse Resp BP Pulse Ox
96.7 F L 64 14 95/71 98
06/28/24 14:00 06/28/24 14:00 06/28/24 14:00 06/28/24 14:00 06/28/24 14:00
Lab Data
06/28/24 12:39
Laboratory Results
06/28/24
12:39
PT 17.2 H
INR 1.38
APTT 28.1
pH 7.37
pCO2 43
pO2 190 H
HCO3 24.9
O2 Delivery Level
Diagnostic Testing:
Physical Exam
-
HEENT: Normocephalic
Cardiovascular: S1/S2
Respiratory: Clear and Non-Labored Respirations
GI: Soft and Non Distended
Neurology: Other (Patient sedated, being weaned off Precedex)
Skin: Warm
General: Comfortable
Assessment
-
Patient is a 74-year-old male with known history of coronary artery disease who was electively admitted for coronary artery bypass graft.
Procedures performed 06/28/2024:
1. Standard sternotomy with aortic and right atrial cannulation
2. Internal mammary artery harvesting
3. Coronary artery bypass grafting x 5 (In situ DIETRICH to LAD proper sequential to largest diagonal distally, Ao to RSVG to both OM daughter branches, Ao to RSVG to LPDA)
4. Left atrial appendage exclusion [35 mm clip]
5. Endoscopic vein harvesting of right lower extremity
6. Placement temporary ventricular pacing wire
7. Coronary endarterectomy of the mid LAD
8. Transesophageal echocardiography
POD #0
Titrate off pressors per protocol, needing low-dose levophed on/off, currently getting LR bolus 250 mL
PA catheter readings reviewed, MAP around 65-69
Management of chest tubes per primary service
Intubated/coming off Precedex, currently on SIMV+PS, 500, 14, 40%, 5 with PS of 5
AB.37, 43, 190 (40% FiO2)
Pain control
RASS goal of 0 to -1
CXR with no obvious opacities/infiltrates
Extubate per protocol
Maintain supplement oxygen as needed
Spirometry 05/2024 suggestive of Obstructive airway disease with positive BD response
Need full PFTs as out patient. CXR and CT without any evidence of pulmonary pathology
PRN Albuterol ordered
Aspiration precautions
Encouraged incentive spirometry, OOB/ambulation/early mobility
Advance diet as tolerated following extubation
GI prophylaxis, on PPI
Monitor critical I/O's
Chest tube output
Labs pending
Trend CBC for now
Can transfuse if indicated for Hb <7, plt <50 in surgical patients
DVT prophylaxis including SCDs
Insulin protocol initiated and ongoing, anticipate will come off insulin by end of the day
We will follow
Critical Care time 45 mins -- The patient is admitted for acute critical illness for the treatment of vital organ failure and/or prevention of further life-threatening conditions. Total care includes time spent in review of history, physical exam,
medications, hemodynamic/ventilator parameters, laboratory data, imaging and discussion with house staff, pharmacy, respiratory therapy, players club representative, and nursing.
.............................................................................................
Data:
Spirometry, 05/2024: FEV1 was 1.47L, FVC was 2.69L
There was a 21% improvement post bronchodilator.
Effort: Good
Impression: Moderate obstructive lung disease, significant response to bronchodilator.
CT Chest, 05/2024:
No acute disease of the chest.
Severe atherosclerotic vascular disease.
Incompletely imaged left renal cyst.
Cardiac Cath, 04/2024
1. Left dominant circulation with an occlusive, 70% napkin ring lesion in the ostium of the LAD (IFR = 0.88) with an additional 40% lesion in the proximal and mid vessel and an 80-90% lesion in the origin of the major second diagonal, a patent
stent in the proximal circumflex, a napkin ring, 80% lesion in the origin of the upper branch of OM1, stuttering 80-90% lesions in the proximal margin of the lower branch of OM1 and a subtotal, 90% lesion in the proximal margin of the LPDA.
2. Normal filling pressures (LVEDP = 11 mmHg at 74.8 kg)
[2024-06-28 14:53] LABS: Glucose - Point of Care 103 mg/dl (70-99)
[2024-06-28] MEDS: PACERONE PO (15:19)
[2024-06-28 16:04] LABS: Glucose - Point of Care 92 mg/dl (70-99)
[2024-06-28 16:21] LABS: B.E. -1.9 mmol/L; HCO3 23.7 mmol/L (21-28); PCO2 43 mmHg (35-48); PO2 164 mmHg (83-108); pH 7.35 (7.35-7.45)
[2024-06-28 16:33] LABS: Hematocrit 31.2 % (39.0-52.0); Platelet Count 201 10^3/uL (130-400)
--- NOTE | 2024-06-28 16:38 | PTCARENOTE ---
CPAP @ 1545
extubated @ 1630to 6L NC w/ no incident able to follow all commands state name and .
[2024-06-28 16:56] LABS: Glucose - Point of Care 94 mg/dl (70-99)
[2024-06-28] MEDS: LOW STRENGTH ASPIRIN 81 MG PO (18:12)
[2024-06-28] MEDS: CRESTOR 20 MG PO (18:18)
[2024-06-28] MEDS: ROXICODONE 5 MG PO (18:18)
[2024-06-28 18:54] LABS: Glucose - Point of Care 103 mg/dl (70-99)
--- NOTE | 2024-06-28 19:00 | PTCARENOTE ---
pt resting comfortably in bed c/o sternal incision pain (SEE MAR). at bedside. assessment remains unchanged
[2024-06-28] MEDS: ANCEF 5 IV (19:09)
[2024-06-28] MEDS: DILAUDID 0.5 MG IV ×2 (19:10→23:29)
[2024-06-28 20:51] LABS: Glucose - Point of Care 120 mg/dl (70-99)
[2024-06-28] MEDS: SENOKOT-S PO (20:51)
--- NOTE | 2024-06-28 22:00 | PTCARENOTE ---
Assumed care of pt. pt resting comfortably in bed with at bedside. pt is S/P from CABGx5 and MATTHEW clip. pt is AAOx4. NSR on monitor. vss. heart sounds audible, radial and DP pulses palpable, trace KYLEIGH temp epicardial V-wire present-disconnected
from pacer box, box at bedside. lungs diminished at b/l bases, spo2 98% on 4 LNC, left pleural and x2 MS CT to -20 wall suction, no air leaks, tidaling, or crepitus. hypo active BS x4 quadrants, abdomen soft non tender. pt voiding clear yellow urine
via quintero catheter. surgical sites maintained. right IJ cordis/slick, left radial A-line, and PIV all maintained, leveled, and zeroed. insulin gtt infusing. call meehan within reach. will continue to monitor.
[2024-06-28] MEDS: TYLENOL 1000 MG PO (22:09)
[2024-06-28] MEDS: FLEXERIL 5 MG PO (22:10)
[2024-06-28] MEDS: PACERONE 200 MG PO (22:10)
[2024-06-28 23:07] LABS: Glucose - Point of Care 74 mg/dl (70-99)
[2024-06-29] VITALS (24 sets, daily range): BP systolic 96–132; BP diastolic 59–81; PULSE 84; O2SAT 97–98; BMI 26.6
[2024-06-29 00:09] LABS: Glucose - Point of Care 87 mg/dl (70-99)
--- NOTE | 2024-06-29 01:00 | PTCARENOTE ---
pt assessment unchanged. NSR on monitor. VSS. call meehan within reach.
[2024-06-29 01:03] LABS: Glucose - Point of Care 90 mg/dl (70-99)
[2024-06-29 01:59] LABS: Glucose - Point of Care 98 mg/dl (70-99)
[2024-06-29 03:39] LABS: Blood Urea Nitrogen 25 mg/dl (9-20); Carbon Dioxide 21 mmol/L (22-30); Chloride 109 mmol/L (98-107); Estimated Creatinine Clearance 76 ml/min; Glucose 100 mg/dl (70-99); HDL Cholesterol 46 mg/dl; Hematocrit 30.7 % (39.0-52.0); Hemoglobin 10.2 g/dL (13.0-18.0); LDL Cholesterol, Calculated 24 mg/dl; Magnesium 2.3 mg/dl (1.6-2.3); Mean Corp Hgb Conc. 33.2 g/dL (33.0-37.0); Mean Corpuscular Hgb 32.4 pg (27.0-31.0); Mean Corpuscular Volume 97.5 fL (80.0-94.0); Mean Platelet Volume 9.8 fL (7.4-10.4); Platelet Count 192 10^3/uL (130-400); Potassium 4.8 mmol/L (3.5-5.1); Red Blood Cell Count 3.15 10^6/uL (4.70-6.10); Red Cell Dist. Width 13.2 % (11.5-14.5); Sodium 137 mmol/L (135-145); Total Cholesterol 85 mg/dl (50-199); Triglyceride 76 mg/dl (10-149); Very Low Density Lipoprotein 15 mg/dl (0-30); White Blood Cell Count 17.4 10^3/uL (4.8-10.8); eGFR > 60.00
[2024-06-29] MEDS: DILAUDID 0.5 MG IV (03:44)
[2024-06-29] MEDS: ANCEF 5 IV ×2 (03:44→11:32)
--- NOTE | 2024-06-29 03:50 | W.PN.CT ---
Today's Communication / Plan
-
-pod #1
-no issues overnight
-drips: Cardene 2.5, insulin
-CT outputs: L pleur 50/115, 2 meds 125/215 in 12/24 hrs
-delined
-d/c Alarcon
-d/c insulin
-current meds (ASA, Plavix, Crestor, Lopressor, Amio, Protonix)
-encourage IS, OOB
Assessment / Plan
-
- Mv-CAD - s/p CABG x5 (In situ DIETRICH to LAD proper sequential to largest diagonal distally, Ao to RSVG to both OM daughter branches, Ao to RSVG to LPDA); Coronary endarterectomy of the mid LAD; LAAE [35 mm clip] by Dr. Majano on 06/28/24, pod #1
- Intraop DARINEL: LVEF 60% pre and postop with no wma.
- Significant multivessel coronary disease involving the proximal LAD
- S/p KISHORE to LCx in 03/2024
- Strong family history for coronary artery disease
- Cataracts, b/l repair
- PVCs
- Emphysema
- Hyperlipidemia
- Hypertension
- Melanoma of skin under left eye- s/p [facility] 2018
- Anxiety
- Acute postop blood loss anemia- stable, no transfusion
- Acute postop atelectasis
- Acute postop hypovolemia with subsequent hypervolemia
Discussed patient care with: Nursing and Care Team
Subjective
-
Date of Service: June 29, 2024
Objective Data
-
Lab Results
06/29/24 03:09
06/29/24 03:09
PT 17.2 Sec (11.4-14.6) H 06/28/24 12:39
INR 1.38 06/28/24 12:39
APTT 28.1 Sec (23.4-35.0) 06/28/24 12:39
Vital Signs
Vital Signs
Temp Pulse Resp BP Pulse Ox
99.5 F 77 18 108/64 97
06/29/24 03:00 06/29/24 03:10 06/29/24 03:10 06/29/24 03:00 06/29/24 03:10
CT Intake/Output/Weight
06/28/24 06/28/24 06/29/24
06:59 18:59 06:59
Intake Total 556.3 / 785.5 229.2 / 785.5
Output Total 795 / 1305 510 / 1305
Balance -238.7 / -519.5 -280.8 / -519.5
SaO2: 97
Physical Exam
-
General: Awake and AOx3
Cardiovascular: Regular rate & rhythm, No Murmurs and Rub
Respiratory: Decreased Breath Sounds
Sternum: Stable
Incision: Clean, Dry and Intact
Extremities: No Edema
Data Reviewed
-
Lab Results: Results Reviewed
Medications: Active Meds Reviewed
Chest X-Ray: Report Reviewed and Image Reviewed
ECG: Report Reviewed and Image Reviewed
--- NOTE | 2024-06-29 04:00 | PTCARENOTE ---
pt resting comfortable in bed. NSR on monitor. VSS. pt's Sarah is 20 points higher than BP cuff pressure. CVPA made aware, A-line continued to be followed. Cardene on and off. on going pain management , see STANISLAW. Javi bath and quintero care provided. new
gown and new leads placed. call meehan within reach. will continue to follow.
[2024-06-29 04:16] LABS: B.E. -2.7 mmol/L; HCO3 22.6 mmol/L (21-28); Ionized Calcium 1.15 mMOL/L (1.15-1.33); O2 Saturation % 98.7 % (94-98); PCO2 40 mmHg (35-48); PO2 100 mmHg (83-108); pH 7.36 (7.35-7.45)
[2024-06-29] MEDS: CALCIUM GLUCONATE 100 IV (04:39)
[2024-06-29 04:57] LABS: Glucose - Point of Care 100 mg/dl (70-99)
[2024-06-29 04:59] LABS: Glucose - Point of Care 95 mg/dl (70-99)
[2024-06-29] MEDS: TYLENOL 1000 MG PO ×3 (05:39→22:31)
[2024-06-29] MEDS: ROXICODONE 5 MG PO ×4 (05:39→20:12)
--- NOTE | 2024-06-29 06:30 | PTCARENOTE ---
Pt de-lined. OOB to chair. ongoing pain management.
[2024-06-29 07:06] LABS: Glucose - Point of Care 105 mg/dl (70-99)
[2024-06-29] MEDS: MAGNESIUM OXIDE 500 MG PO ×2 (09:00→20:11)
[2024-06-29] MEDS: PLAVIX 75 MG PO (09:00)
[2024-06-29] MEDS: PROTONIX 40 MG PO (09:00)
[2024-06-29] MEDS: NEURONTIN 100 MG PO ×3 (09:00→22:31)
[2024-06-29] MEDS: SENOKOT-S 1 TABLET PO ×2 (09:00→20:11)
[2024-06-29] MEDS: PACERONE 200 MG PO ×3 (09:00→22:31)
[2024-06-29] MEDS: LOPRESSOR 12.5 MG PO ×2 (09:00→20:11)
[2024-06-29] MEDS: FLEXERIL 5 MG PO (09:00)
--- NOTE | 2024-06-29 09:00 | PTCARENOTE ---
Assumed care of patient at 0700. Pt is awake, alert, and oriented. Pt with minimal complaints of pain, PRN Flexeril administered per order. Pt remains SR with HR 70's. BP 110/81 MAP 87. Pulse oximetry 95% on room air. Mediastinal x2 and left pleural
chest tubes in place, no sign of air leak or crepitus. Pt tolerated clear liquid diet. Pt is due to void. Midsternal incision approximated and FLORIN. Right leg incision with aries wrap in place. Right groin puncture intact. Right IJ cordis in place. Pt
remains on insulin gtt per glycemic protocol.
[2024-06-29] MEDS: LOW STRENGTH ASPIRIN 81 MG PO (09:01)
[2024-06-29] MEDS: LIDOCAINE 4% PATCH 1 PATCH TOPICAL (09:01)
[2024-06-29] MEDS: BACTROBAN 2% OINTMENT 1 APPLIC NASAL ×2 (09:01→20:12)
[2024-06-29 09:06] LABS: Glucose - Point of Care 109 mg/dl (70-99)
--- NOTE | 2024-06-29 09:36 | W.PN.ANS.POP ---
Anesthesia Post Operative
- Anesthesia Post Op Note
Vital Signs Stable-See Nursing Note: Yes
Airway Patent: Yes
Adequate Pain Control: Yes
Change in Mental Status: No
Current Postoperative Nausea & Vomiting: No
Anesthesia Complications: No
General Anesthetic Recall: No
Unplanned Admission: No
Post Op Hydration Adequate: Yes
--- NOTE | 2024-06-29 10:23 | W.PN.CD ---
Today's Communication / Plan
-
trend tele
ASA, Plavix, statin, metoprolol
Impression / Plan
-
I/P: 74M with HTN, HLD, emphysema, melanoma, current smoker, and strong family history of coronary artery disease who had an abnormal stress test which prompted cardiac catheterization which found multivessel disease. He is here s/p CABG.
Outpatient intelligence manager: Dr. Zarco
CAD S/P CABG x 5 (In situ DIETRICH to LAD proper sequential to largest diagonal distally, Ao to RSVG to both OM daughter branches, Ao to RSVG to LPDA) with MATTHEW clip by Dr. Majano 06/28/2024
-Pre LVEF 60%, post 60%
-The sequential graft to the mid LAD did have significant circumferential calcification requiring a coronary endarterectomy
-sinus on EKG and tele
-ASA, Plavix, statin, metoprolol
HTN
-continue metoprolol
HLD, goal LDL < 55, continue rosuvastatin 20mg
Smoker, cessation recommended
Physical Exam
Vital Signs/Labs
Vital Signs
Temp Pulse Resp BP Pulse Ox
98.3 F 86 16 132/80 95
06/29/24 08:00 06/29/24 10:00 06/29/24 08:00 06/29/24 10:00 06/29/24 10:13
06/28/24 06/29/24 06/30/24
06:59 06:59 06:59
Actual Weight 73.9 kg 77 kg
06/29/24 03:09
06/29/24 03:09
PT 17.2 Sec (11.4-14.6) H 06/28/24 12:39
INR 1.38 06/28/24 12:39
APTT 28.1 Sec (23.4-35.0) 06/28/24 12:39
Magnesium 2.3 mg/dl (1.6-2.3) 06/29/24 03:09
Triglycerides 76 mg/dl (10-149) 06/29/24 03:09
LDL Cholesterol, Calc 24 mg/dl 06/29/24 03:09
VLDL Cholesterol, Calc 15 mg/dl (0-30) 06/29/24 03:09
HDL Cholesterol 46 mg/dl 06/29/24 03:09
Physical Exam
Constitutional: No acute distress and Comfortable
EENT: Moist mucous membranes
Cardiovascular: Rhythm & rate is regular, Pedal edema is absent, JVD pressure is normal and Systolic murmur absent
Respiratory: Respiratory effort normal and Lungs clear to auscul.
Neuro/Psych: AO x 3
Data Reviewed
-
Date of Service: June 29, 2024
EKG: Other (tele: SR 70s)
Labs: Labs Reviewed by me
[2024-06-29 11:38] LABS: Glucose - Point of Care 120 mg/dl (70-99)
[2024-06-29] MEDS: NSS IV (11:42)
--- NOTE | 2024-06-29 11:50 | W.PN.INTV ---
Addendum entered and electronically signed by Conor Nowak MD 06/30/24 11:11:
Patient transferred from CVICU
Top Hat Body Maker service will sign off
Will arrange out patient follow up with Pulmonary clinic in 4-6 weeks time.
Original Note:
Today's Communication / Plan
Recommendations
- Increase activity as tolerated
-Added DuoNebs on an as-needed basis
-Patient needs outpatient follow-up with pulmonary clinic for PFTs
Assessment
-
Patient is a 74-year-old male with known history of coronary artery disease who was electively admitted for coronary artery bypass graft.
Procedures performed 06/28/2024:
1. Standard sternotomy with aortic and right atrial cannulation
2. Internal mammary artery harvesting
3. Coronary artery bypass grafting x 5 (In situ DIETRICH to LAD proper sequential to largest diagonal distally, Ao to RSVG to both OM daughter branches, Ao to RSVG to LPDA)
4. Left atrial appendage exclusion [35 mm clip]
5. Endoscopic vein harvesting of right lower extremity
6. Placement temporary ventricular pacing wire
7. Coronary endarterectomy of the mid LAD
8. Transesophageal echocardiography
POD #0
Currently off pressors, hemodynamically stable
PA catheter removed
Management of chest tubes per primary service
Extubated successfully, on supplemental oxygen saturating well
CXR on 06/29, unremarkable
Spirometry 05/2024 suggestive of Obstructive airway disease with positive BD response
Need full PFTs as out patient. CXR and CT without any evidence of pulmonary pathology
PRN Albuterol ordered
Aspiration precautions
Encouraged incentive spirometry, OOB/ambulation/early mobility
Can use as needed DuoNeb
Advance diet as tolerated following extubation
GI prophylaxis, on PPI
Monitor critical I/O's
Chest tube output
Trend CBC for now
Can transfuse if indicated for Hb <7, plt <50 in surgical patients
DVT prophylaxis including SCDs
We will follow
Other medical co-morbidities:
#. Long standing smoking with suspect underlying chronic bronchitis/Emphysema
-Patient needs outpatient follow-up with pulmonary clinic for full PFTs, 6-minute walk test as well as ongoing LDCT for lung cancer screening
-Patient might even need inhaler therapy, we will follow-up on that as outpatient
-Information shared with patient, he can follow-up with pulmonary clinic in 4 to 6 weeks time after discharge
-May use as needed DuoNeb for now
Critical Care time 35 mins -- The patient is admitted for acute critical illness for the treatment of vital organ failure and/or prevention of further life-threatening conditions. Total care includes time spent in review of history, physical exam,
medications, hemodynamic/ventilator parameters, laboratory data, imaging and discussion with house staff, pharmacy, respiratory therapy, astronaut mission specialist, and nursing.
.............................................................................................
Data:
Spirometry, 05/2024: FEV1 was 1.47L, FVC was 2.69L
There was a 21% improvement post bronchodilator.
Effort: Good
Impression: Moderate obstructive lung disease, significant response to bronchodilator.
CT Chest, 05/2024:
No acute disease of the chest.
Severe atherosclerotic vascular disease.
Incompletely imaged left renal cyst.
Cardiac Cath, 04/2024
1. Left dominant circulation with an occlusive, 70% napkin ring lesion in the ostium of the LAD (IFR = 0.88) with an additional 40% lesion in the proximal and mid vessel and an 80-90% lesion in the origin of the major second diagonal, a patent
stent in the proximal circumflex, a napkin ring, 80% lesion in the origin of the upper branch of OM1, stuttering 80-90% lesions in the proximal margin of the lower branch of OM1 and a subtotal, 90% lesion in the proximal margin of the LPDA.
2. Normal filling pressures (LVEDP = 11 mmHg at 74.8 kg)
Subjective Dataa
Subjective Data
Date of Service:
Date of Service: June 29, 2024
Subjective:
Patient comfortably sitting in bed, in no acute distress.
Review of Systems
Genitourinary: Other (All 14 systems reviewed and negative except as stated above in the history of present illness.)
Objective Data
Data Reviewed
Vital Signs / I&O / Oxygen:
Vital Signs
Temp Pulse Resp BP Pulse Ox
98 F 69 16 115/65 96
06/29/24 11:00 06/29/24 11:00 06/29/24 11:00 06/29/24 11:00 06/29/24 11:00
Intake and Output
06/28/24 06/29/24 06/30/24
06:59 06:59 06:59
Intake Total 952.2 / 963.2 55 / 55
Output Total 1440 / 1500 125 / 125
Balance -487.8 / -536.8 -70 / -70
SaO2 [CPAP] 99
SaO2 [SIMV] 97
SaO2 96
Nasal Cannula flow liters per 2
minute
Physical Exam
General: Comfortable
HEENT: Normocephalic
Cardiovascular: Regular Rhythm
Respiratory: Clear and Non-Labored Respirations
GI: Soft and Non Distended
Neurology: Awake and Alert
Skin: Warm
Labs/Micro/Reports
Lab Data
06/29/24 03:09
06/29/24 03:09
Laboratory Results
06/28/24 06/28/24 06/29/24
12:39 16:14 04:07
PT 17.2 H
INR 1.38
APTT 28.1
pH 7.37 7.35 7.36
pCO2 43 43 40
pO2 190 H 164 H 100
HCO3 24.9 23.7 22.6
O2 Delivery Level
--- NOTE | 2024-06-29 12:16 | PTCARENOTE ---
Pt ambulated with cardiac rehab, tolerated well. PRN Roxicodone administered for pain. Pt remains SR with HR 70's. BP 119/67 MAP 84. Pulse oximetry 97% on room air. Mediastinal chest tubes x2 and left pleural chest tubes remain in place. Pt reports
voiding in urinal, emptied unknown amount. Bladder scanned for 70mL. Remains on insulin gtt at this time.
[2024-06-29] MEDS: FERRLECIT 110 MG IV (14:38)
[2024-06-29 14:46] LABS: Glucose - Point of Care 90 mg/dl (70-99)
[2024-06-29] MEDS: CRESTOR 20 MG PO (15:50)
--- NOTE | 2024-06-29 16:30 | PTCARENOTE ---
Left pleural chest tube d/c'd per order without issue. Insulin gtt d/c'd. Pt remains SR with HR 70's. BP 124/74 MAP 90. Pulse oximetry 95% on room air.
--- NOTE | 2024-06-29 20:30 | PTCARENOTE ---
Assumed care of the patient. Patient in bed, AOx3, at bedside, c/o 6/10 sternal pain - see MAR. SR on the monitor, rates 80's, VSS; v wire present and tied to pacer box powered on 70/20/2; +1 LE edema, radial pulses intact, DP pulses weakly
palpable, warm extremities. Lungs diminished throughout, shallow respirations due to pain; IS encouraged, 750-1000, moist nonproductive occasional cough present CORRECTIONAL GUARD; CTx2 with sanguineous drainage to -20 cm wall suction, no air leak, tidaling, or
crepitus noted. BS normoactive, abdomen SNT, patient denies nausea with oral intake. Patient able to void in the urinal, reinforced to patient and to ring for assistance when getting OOB for safety and no allow nursing to empty for measurement
of output; patient stated around 1700 he 'just went,' and denies previous issues with incontinence additional episode of incontinence at the time of this note; CVNP aware. All surgical sites intact BI SOLUTIONS ARCHITECT with Dermabond; RSVG site ecchymotic; CT
dressing site CDI. RIJ Cordis and PIVx1 INT. Sternal and safety precautions discussed and patient/spouse indicated understanding. Call meehan within reach, assessment of needs ongoing. See nursing worklist for additional intervention details.
--- NOTE | 2024-06-29 20:30 | PTCARENOTE ---
Assumed care of the patient. Patient in bed, AOx3, at bedside, c/o 6/10 sternal pain - see MAR. SR on the monitor, rates 80's, VSS; v wire present and tied to pacer box powered on 70/20/2; +1 LE edema, radial pulses intact, DP pulses weakly
palpable, warm extremities. Lungs diminished throughout, shallow respirations due to pain; IS encouraged, 750-1000, moist nonproductive occasional cough present PV INSTALLER TECH; CTx2 with sanguineous drainage to -20 cm wall suction, no air leak, tidaling, or
crepitus noted. BS normoactive, abdomen SNT, patient denies nausea with oral intake. Patient able to void in the urinal, reinforced to patient and to ring for assistance when getting OOB for safety and to allow nursing to empty container for
measurement of output; patient stated around 1700 he 'just went,' due to urgency and denies previous issues with incontinence, additional episode of incontinence at the time of this note which patient states is his third today; CVNP aware. All
surgical sites intact DRAMA CRITIC with Dermabond; RSVG site ecchymotic; CT dressing site CDI. RIJ Cordis and PIVx1 INT. Sternal and safety precautions discussed at length and patient/spouse indicated understanding that he cannot get OOB unassisted at this
time. Call meehan within reach, assessment of needs ongoing. See nursing worklist for additional intervention details.
--- NOTE | 2024-06-29 22:50 | PTCARENOTE ---
Patient incontinent and captured some urine in the urinal. Bladder scanned for 0 PVR, condom catheter applied.
[2024-06-30] VITALS (12 sets, daily range): BP systolic 102–151; BP diastolic 57–76; BMI 26.9
[2024-06-30] MEDS: ROXICODONE 5 MG PO ×3 (00:12→15:00)
--- NOTE | 2024-06-30 00:15 | PTCARENOTE ---
Patient c/o moderate pain with coughing. PRN medication given and splinting with the heart pillow reinforced. VSS. Assessment ongoing.
[2024-06-30] MEDS: ROXICODONE 2.5 MG PO (04:29)
--- NOTE | 2024-06-30 04:30 | PTCARENOTE ---
VSS, additional pain meds given, see MAR. Patient sleeping between care.
[2024-06-30 04:51] LABS: Hematocrit 26.3 % (39.0-52.0); Hemoglobin 9.2 g/dL (13.0-18.0); Mean Corpuscular Hgb 33.2 pg (27.0-31.0); Mean Corpuscular Volume 94.9 fL (80.0-94.0); Mean Platelet Volume 10.1 fL (7.4-10.4); Platelet Count 157 10^3/uL (130-400); Red Blood Cell Count 2.77 10^6/uL (4.70-6.10); White Blood Cell Count 17.4 10^3/uL (4.8-10.8)
[2024-06-30 05:15] LABS: Blood Urea Nitrogen 32 mg/dl (9-20); Calcium 8.3 mg/dl (8.4-10.2); Carbon Dioxide 26 mmol/L (22-30); Chloride 98 mmol/L (98-107); Estimated Creatinine Clearance 67 ml/min; Glucose 102 mg/dl (70-99); Magnesium 2.2 mg/dl (1.6-2.3); Potassium 4.9 mmol/L (3.5-5.1); Sodium 130 mmol/L (135-145); eGFR > 60.00
--- NOTE | 2024-06-30 05:34 | W.PN.CT ---
Today's Communication / Plan
-
-no issues overnight
-CT outputs: 2 meds 80/215 in 1224 hrs, L Pl DC'd
-noted incontinence of urine s/p quintero removal
-current meds (ASA, Plavix, Crestor, Lopressor 12.5 mg, Amio, Protonix)
-encourage IS, OOB
Assessment / Plan
-
- Mv-CAD - s/p CABG x5 (In situ DIETRICH to LAD proper sequential to largest diagonal distally, Ao to RSVG to both OM daughter branches, Ao to RSVG to LPDA); Coronary endarterectomy of the mid LAD; LAAE [35 mm clip] by Dr. Majano on 06/28/24, pod #2
- Intraop DARINEL: LVEF 60% pre and postop with no wma.
- Significant multivessel coronary disease involving the proximal LAD
- S/p KISHORE to LCx in 03/2024
- Strong family history for coronary artery disease
- Cataracts, b/l repair
- PVCs
- Emphysema
- Hyperlipidemia
- Hypertension
- Melanoma of skin under left eye- s/[place] [facility] [place]
- Anxiety
- Acute postop blood loss anemia- stable, no transfusion
- Acute postop atelectasis
- Acute postop hypovolemia with subsequent hypervolemia
Subjective
-
Date of Service: June 30, 2024
Objective Data
-
Lab Results
06/30/24 04:23
06/30/24 04:23
PT 17.2 Sec (11.4-14.6) H 06/28/24 12:39
INR 1.38 06/28/24 12:39
APTT 28.1 Sec (23.4-35.0) 06/28/24 12:39
Vital Signs
Vital Signs
Temp Pulse Resp BP Pulse Ox
98.7 F 77 18 118/70 94
06/30/24 04:16 06/30/24 04:16 06/30/24 04:16 06/30/24 04:16 06/30/24 04:14
CT Intake/Output/Weight
06/29/24 06/29/24 06/30/24
06:59 18:59 06:59
Intake Total 395.9 / 963.2 117.6 / 412.6 295 / 412.6
Output Total 645 / 1500 365 / 545 180 / 545
Balance -249.1 / -536.8 -247.4 / -132.4 115 / -132.4
SaO2: 94
Physical Exam
-
General: Awake, Oriented and AOx3
Cardiovascular: Regular rate & rhythm, No Murmurs, No Rub and No Gallop
Respiratory: Clear and Equal
Sternum: Stable
Incision: Clean, Dry and Dressing Intact
Extremities: No Edema
Data Reviewed
-
Lab Results: Results Reviewed
Medications: Active Meds Reviewed
Chest X-Ray: Report Reviewed
ECG: Report Reviewed
[2024-06-30] MEDS: TYLENOL 1000 MG PO ×3 (06:07→21:36)
[2024-06-30] MEDS: LIDOCAINE 4% PATCH 1 PATCH TOPICAL (08:47)
[2024-06-30] MEDS: PACERONE 200 MG PO ×3 (08:48→21:36)
[2024-06-30] MEDS: SENOKOT-S 1 TABLET PO ×2 (08:48→19:34)
[2024-06-30] MEDS: LOW STRENGTH ASPIRIN 81 MG PO (08:48)
[2024-06-30] MEDS: LOPRESSOR 12.5 MG PO ×2 (08:48→19:41)
[2024-06-30] MEDS: PLAVIX 75 MG PO (08:48)
[2024-06-30] MEDS: MAGNESIUM OXIDE 500 MG PO ×2 (08:48→19:34)
[2024-06-30] MEDS: PROTONIX 40 MG PO (08:48)
[2024-06-30] MEDS: BACTROBAN 2% OINTMENT 1 APPLIC NASAL ×2 (08:49→19:33)
[2024-06-30] MEDS: MIRALAX TUBE (08:49)
[2024-06-30] MEDS: NEURONTIN 100 MG PO ×3 (08:49→21:36)
--- NOTE | 2024-06-30 08:55 | PTCARENOTE ---
Assumed care of patient at 0700. Pt is awake, alert, and oriented. Minimal complaints of pain, PRN Roxicodone administered per order. Pt remains SR with HR 70's. BP 111/70 MAP 82. Epicardial V wire in place tied around pacer box but not plugged in.
V wire box set to 70/20/2. Pulse oximetry 97% on room air. Mediastinal chest tubes x2 in place, no sign of air leak or crepitus. Pt tolerating PO diet. Pt with occasional urgency/incontinence overnight. Midsternal incision approximated and FLORIN,
right leg incision and right groin puncture approximated and COMPLIANCE PROJECT MANAGER. Right IJ cordis in place with KVO. Pt currently OOB in chair with call meehan within reach.
[2024-06-30] MEDS: LASIX 20 MG IV (12:06)
--- NOTE | 2024-06-30 12:15 | PTCARENOTE ---
20mg IV Lasix administered. Pt remains SR with HR 70's. BP 114/71 MAP 83. Pulse oximetry 97% on room air.
[2024-06-30] MEDS: NSS IV (13:32)
[2024-06-30] MEDS: FERRLECIT 110 MG IV (14:59)
--- NOTE | 2024-06-30 15:30 | PTCARENOTE ---
V wire pulled by CT CLIVEPete. BP monitored x 1 hr. Mediastinal chest tube output minimal. Mediastinal chest tubes d/c'd per order 1 hour following V wire removal. Pt with no issues at this time.
--- NOTE | 2024-06-30 15:55 | W.PN.CD ---
Today's Communication / Plan
-
continue ASA, Plavix, statin, metoprolol
Impression / Plan
-
I/P: 74M with HTN, HLD, emphysema, melanoma, current smoker, and strong family history of coronary artery disease who had an abnormal stress test which prompted cardiac catheterization which found multivessel disease. He is here s/p CABG.
Outpatient beam department supervisor: Dr. Zarco
CAD S/P CABG x 5 (In situ DIETRICH to LAD proper sequential to largest diagonal distally, Ao to RSVG to both OM daughter branches, Ao to RSVG to LPDA) with MATTHEW clip by Dr. Majano 06/28/2024
-Pre LVEF 60%, post 60%
-The sequential graft to the mid LAD did have significant circumferential calcification requiring a coronary endarterectomy
-sinus on EKG and tele
-continue ASA, Plavix, statin, metoprolol
HTN
-continue metoprolol
HLD, goal LDL < 55, continue rosuvastatin 20mg
Current smoker, cessation recommended
Physical Exam
Vital Signs/Labs
Vital Signs
Temp Pulse Resp BP Pulse Ox
97.7 F 78 18 151/71 97
06/30/24 12:15 06/30/24 15:00 06/30/24 12:15 06/30/24 14:37 06/30/24 12:15
06/29/24 06/30/24 07/01/24
06:59 06:59 06:59
Actual Weight 77 kg 77.8 kg
06/30/24 04:23
06/30/24 04:23
PT 17.2 Sec (11.4-14.6) H 06/28/24 12:39
INR 1.38 06/28/24 12:39
APTT 28.1 Sec (23.4-35.0) 06/28/24 12:39
Magnesium 2.2 mg/dl (1.6-2.3) 06/30/24 04:23
Triglycerides 76 mg/dl (10-149) 06/29/24 03:09
LDL Cholesterol, Calc 24 mg/dl 06/29/24 03:09
VLDL Cholesterol, Calc 15 mg/dl (0-30) 06/29/24 03:09
HDL Cholesterol 46 mg/dl 06/29/24 03:09
Physical Exam
Constitutional: No acute distress and Comfortable
EENT: Moist mucous membranes
Cardiovascular: Rhythm & rate is regular, Pedal edema is absent, JVD pressure is normal and Systolic murmur absent
Respiratory: Respiratory effort normal, Lungs clear to auscul. and Wheeze Absent
Neuro/Psych: AO x 3
Data Reviewed
-
Date of Service: June 30, 2024
EKG: Other (Tele: SR, occasional PVC's, HR 80s)
Labs: Labs Reviewed by me
[2024-06-30] MEDS: CRESTOR 20 MG PO (16:51)
--- NOTE | 2024-06-30 20:00 | PTCARENOTE ---
assumed care of pt from previous RN. pt A&Ox4, resting in bed at time of assessment. at bedside. SR on tele-monitor. POX 92% on RA. abd s/n, +BS. pt denies passing gas. voiding clear, juvenal colored urine in the urinal. all surgical sites
stable, CDI. R IJ cordis w/ KVO. PIV intact. see work list for complete nursing assessment, interventions, VS, and I&Os.
[2024-06-30] MEDS: MUCINEX 600 MG PO (21:36)
[2024-06-30] MEDS: FLEXERIL 5 MG PO (21:36)
[2024-07-01] VITALS (21 sets, daily range): BP systolic 91–148; BP diastolic 59–85; PULSE 61; O2SAT 96–97; BMI 27.0
--- NOTE | 2024-07-01 00:30 | PTCARENOTE ---
assessment remains unchanged. VSS. pt assisted OOB to bathroom by this RN.
[2024-07-01] MEDS: ROXICODONE 5 MG PO ×3 (01:36→20:52)
--- NOTE | 2024-07-01 03:45 | PTCARENOTE ---
no acute changes. VSS. AM labs collected and sent.
[2024-07-01 04:00] LABS: Hemoglobin 8.2 g/dL (13.0-18.0); Mean Corp Hgb Conc. 34.2 g/dL (33.0-37.0); Mean Corpuscular Hgb 32.2 pg (27.0-31.0); Mean Corpuscular Volume 94.1 fL (80.0-94.0); Mean Platelet Volume 10.4 fL (7.4-10.4); Platelet Count 143 10^3/uL (130-400); Red Blood Cell Count 2.55 10^6/uL (4.70-6.10)
[2024-07-01 04:22] LABS: Blood Urea Nitrogen 31 mg/dl (9-20); Calcium 8.1 mg/dl (8.4-10.2); Carbon Dioxide 27 mmol/L (22-30); Chloride 100 mmol/L (98-107); Estimated Creatinine Clearance 76 ml/min; Glucose 111 mg/dl (70-99); Magnesium 2.3 mg/dl (1.6-2.3); Potassium 4.2 mmol/L (3.5-5.1); Sodium 129 mmol/L (135-145); eGFR > 60.00
--- NOTE | 2024-07-01 04:59 | W.PN.CT ---
Today's Communication / Plan
-
-no issues overnight
-CTs DCd
-noted incontinence of urine s/p quintero removal, now improved
-current meds (ASA, Plavix, Crestor, Lopressor 12.5 mg, Amio, Protonix)
-encourage IS, OOB
Assessment / Plan
-
- Mv-CAD - s/p CABG x5 (In situ DIETRICH to LAD proper sequential to largest diagonal distally, Ao to RSVG to both OM daughter branches, Ao to RSVG to LPDA); Coronary endarterectomy of the mid LAD; LAAE [35 mm clip] by Dr. Majano on 06/28/24, pod #3
- Intraop DARINEL: LVEF 60% pre and postop with no wma.
- Significant multivessel coronary disease involving the proximal LAD
- S/p KISHORE to LCx in 03/2024
- Strong family history for coronary artery disease
- Cataracts, b/l repair
- PVCs
- Emphysema
- Hyperlipidemia
- Hypertension
- Melanoma of skin under left eye- s/p Mohs 2018
- Anxiety
- Acute postop blood loss anemia- stable, no transfusion
- Acute postop atelectasis
- Acute postop hypovolemia with subsequent hypervolemia
Subjective
-
Date of Service: July 01, 2024
Objective Data
-
Lab Results
07/01/24 03:37
07/01/24 03:37
PT 17.2 Sec (11.4-14.6) H 06/28/24 12:39
INR 1.38 06/28/24 12:39
APTT 28.1 Sec (23.4-35.0) 06/28/24 12:39
Vital Signs
Vital Signs
Temp Pulse Resp BP Pulse Ox
98.5 F 73 14 101/62 92
07/01/24 03:45 07/01/24 03:34 07/01/24 03:45 07/01/24 03:34 07/01/24 03:[address]
CT Intake/Output/Weight
06/30/24 06/30/24 07/01/24
06:59 18:59 06:59
Intake Total 295 / 412.6 220 / 330 110 / 330
Output Total 380 / 745 695 / 795 100 / 795
Balance -85 / -332.4 -475 / -465 10 / -465
SaO2: 92
Physical Exam
-
General: Awake, Oriented and AOx3
Cardiovascular: Regular rate & rhythm, No Murmurs, No Rub and No Gallop
Respiratory: Clear and Equal
Sternum: Stable
Incision: Clean, Dry and Intact
Extremities: No Edema and No Erythema
Data Reviewed
-
Lab Results: Results Reviewed
Medications: Active Meds Reviewed
Chest X-Ray: Report Reviewed
ECG: Report Reviewed
[2024-07-01] MEDS: ZOFRAN 4 MG IV (05:58)
[2024-07-01] MEDS: MAGNESIUM SULFATE 50 IV (06:11)
[2024-07-01] MEDS: CORDARONE 518 MG IV (06:18)
[2024-07-01] MEDS: CORDARONE 103 MG IV (06:23)
[2024-07-01] MEDS: LOPRESSOR 5 MG IV (06:31)
[2024-07-01] MEDS: TYLENOL 1000 MG PO ×3 (06:31→22:11)
[2024-07-01] MEDS: ROXICODONE 2.5 MG PO (06:39)
--- NOTE | 2024-07-01 07:57 | W.PN.CD ---
Today's Communication / Plan
-
amio/metop for afib, consider anticoagulation
Impression / Plan
-
I/P: 74M with HTN, HLD, emphysema, melanoma, current smoker, and strong family history of coronary artery disease who had an abnormal stress test which prompted cardiac catheterization which found multivessel disease. He is here s/p CABG.
Outpatient account resolution specialist: Dr. Zarco
Interval events:
new afib with RVR this AM
vital signs otherwise stable
mildly symptomatic from RVR, feels flutters, no CP/SOB
CXR lungs clear
Post-op atrial fibrillation with RVR
-began this morning, RVR also associated with rate related LBBB
-hemodynamically stable
-cont. amio IV/PO, metoprolol for rate control
-if continues >6 hours consider anticoagulation if safe from a post-operative bleeding risk standpoint
CAD S/P CABG x 5 (In situ DIETRICH to LAD proper sequential to largest diagonal distally, Ao to RSVG to both OM daughter branches, Ao to RSVG to LPDA) with MATTHEW clip by Dr. Majano 06/28/2024
-Pre LVEF 60%, post 60%
-The sequential graft to the mid LAD did have significant circumferential calcification requiring a coronary endarterectomy
-sinus on EKG and tele
-continue ASA, Plavix, statin, metoprolol
HTN
-continue metoprolol
HLD, goal LDL < 55, continue rosuvastatin 20mg
Current smoker, cessation recommended
Physical Exam
Vital Signs/Labs
Vital Signs
Temp Pulse Resp BP Pulse Ox
36.9 C 117 14 118/85 93
07/01/24 03:45 07/01/24 06:31 07/01/24 03:45 07/01/24 06:31 07/01/24 06:27
06/30/24 07/01/24 07/02/24
06:59 06:59 06:59
Actual Weight 77.8 kg 78 kg
07/01/24 03:37
07/01/24 03:37
PT 17.2 Sec (11.4-14.6) H 06/28/24 12:39
INR 1.38 06/28/24 12:39
APTT 28.1 Sec (23.4-35.0) 06/28/24 12:39
Magnesium 2.3 mg/dl (1.6-2.3) 07/01/24 03:37
Triglycerides 76 mg/dl (10-149) 06/29/24 03:09
LDL Cholesterol, Calc 24 mg/dl 06/29/24 03:09
VLDL Cholesterol, Calc 15 mg/dl (0-30) 06/29/24 03:09
HDL Cholesterol 46 mg/dl 06/29/24 03:09
Physical Exam
Constitutional: No acute distress
Cardiovascular: Rhythm/rate is irregular
Respiratory: Respiratory effort normal
Neuro/Psych: AO x 3
Data Reviewed
-
Date of Service: July 01, 2024
Medical Decision Making: Reviewed Test Results
EKG: Tracing Personally Visualized and interpreted
X-Ray/CT/US/MRI/NUC/PET: Image Personally Visualized and interpreted
Labs: Labs Reviewed by me
--- NOTE | 2024-07-01 08:00 | PTCARENOTE ---
resumed care of pt from previous RN. AAOx3. OOB in chair at time of assessment. at bedside. AFIB on monitor. HR 100-120s. IV AMIO infusing at ordered rate through cordis. 96% RA. occasional dry non prod cough notes. +1-2 edema noted to lower
extremities and ankles. AM medications given. All surgical sites stable. will continue to monitor.
[2024-07-01] MEDS: SENOKOT-S 1 TABLET PO ×2 (09:12→20:30)
[2024-07-01] MEDS: MIRALAX 17 GRAMS TUBE (09:12)
[2024-07-01] MEDS: LIDOCAINE 4% PATCH TOPICAL (09:12)
[2024-07-01] MEDS: LOW STRENGTH ASPIRIN 81 MG PO (09:12)
[2024-07-01] MEDS: NEURONTIN 100 MG PO ×3 (09:12→22:10)
[2024-07-01] MEDS: PLAVIX 75 MG PO (09:13)
[2024-07-01] MEDS: MAGNESIUM OXIDE 500 MG PO ×2 (09:13→20:30)
[2024-07-01] MEDS: PACERONE 200 MG PO ×3 (09:13→22:10)
[2024-07-01] MEDS: MUCINEX 600 MG PO ×2 (09:13→20:30)
[2024-07-01] MEDS: PROTONIX 40 MG PO (09:13)
[2024-07-01] MEDS: TOPROL XL 12.5 MG PO ×2 (09:14→20:30)
[2024-07-01] MEDS: BACTROBAN 2% OINTMENT 1 APPLIC NASAL ×2 (09:14→20:29)
[2024-07-01] MEDS: KCL 20 MEQ PO (12:29)
[2024-07-01] MEDS: LASIX 40 MG PO (12:29)
[2024-07-01] MEDS: NSS 500 IV (14:42)
[2024-07-01] MEDS: FERRLECIT 110 MG IV (14:43)
[2024-07-01] MEDS: CRESTOR 20 MG PO (16:18)
--- NOTE | 2024-07-01 16:28 | PTCARENOTE ---
walked down hallway and back with patient and . felt the need to hold onto the wall bar to feel steady. will continue ot monitor.
--- NOTE | 2024-07-01 17:05 | PTCARENOTE ---
minimal urine output. bladder scanned for 238. KRISTOFER Lrod made aware.
--- NOTE | 2024-07-01 20:30 | PTCARENOTE ---
Patient received OOB in chair watching movie. Patient's at bedside. Patient A+A+Ox3. No neurological deficits noted. Patient assisted to bed with assist x2. No c/o headache, dizziness or lightheadedness. Generalized weakness. Room air.
SpO2 94%. Chest tube dressing intact. Sinus Rhythm. Heart rate 60's. Blood pressure 114/61 (78). Patient with no c/o chest pain, pressure or discomfort. Normoactive bowel sounds. No BM. No c/o nausea. No vomiting. Voided 250 ml juvenal
urine. Bilateral lower extremity edema. Weak, palpable Dorsalis pedis pulses. Sternal incision intact. Right groin intact. Right lower extremity incision intact. Right I.J. Cordis. Patient with no c/o back or flank pain. Assessment as
documented.
--- NOTE | 2024-07-01 23:30 | PTCARENOTE ---
Patient sleeping without difficulty. Patient's sleeping in room. No further changes from previous assessment.
[2024-07-02] VITALS (11 sets, daily range): BP systolic 96–149; BP diastolic 59–87; PULSE 72; O2SAT 99; BMI 27.5
[2024-07-02 03:49] LABS: Hematocrit 23.8 % (39.0-52.0); Hemoglobin 8.1 g/dL (13.0-18.0); Mean Corpuscular Hgb 32.1 pg (27.0-31.0); Mean Corpuscular Volume 94.4 fL (80.0-94.0); Mean Platelet Volume 10.5 fL (7.4-10.4); Platelet Count 165 10^3/uL (130-400); Red Blood Cell Count 2.52 10^6/uL (4.70-6.10); Red Cell Dist. Width 13.2 % (11.5-14.5); White Blood Cell Count 11.3 10^3/uL (4.8-10.8)
[2024-07-02 03:58] LABS: Blood Urea Nitrogen 33 mg/dl (9-20); Calcium 7.9 mg/dl (8.4-10.2); Carbon Dioxide 26 mmol/L (22-30); Chloride 100 mmol/L (98-107); Estimated Creatinine Clearance 67 ml/min; Glucose 102 mg/dl (70-99); Magnesium 2.2 mg/dl (1.6-2.3); Potassium 4.5 mmol/L (3.5-5.1); Sodium 130 mmol/L (135-145); eGFR > 60.00
--- NOTE | 2024-07-02 04:00 | PTCARENOTE ---
Patient A+A+Ox3. No neurological deficits noted. Patient voided 200 ml juvenal urine. AM lab work collected and sent. Patient given CHG bath and linens changed. Chest tube dressing changed. Patient back to sleep. Assessment/Interventions as
documented.
--- NOTE | 2024-07-02 05:15 | W.PN.CT ---
Today's Communication / Plan
-
-yesterday morning went into afib with RVR, now back in NSR since ~1200 after amio/metoprolol/mg, now off IV amio, holding on AC for now
-current meds (ASA, Plavix, Crestor, Lopressor 12.5 mg, Amio, Protonix)
-encourage IS, OOB
Assessment / Plan
-
- Mv-CAD - s/p CABG x5 (In situ DIETRICH to LAD proper sequential to largest diagonal distally, Ao to RSVG to both OM daughter branches, Ao to RSVG to LPDA); Coronary endarterectomy of the mid LAD; LAAE [35 mm clip] by Dr. Majano on 06/28/24, pod #4
- Intraop DARINEL: LVEF 60% pre and postop with no wma.
- Significant multivessel coronary disease involving the proximal LAD
- S/p KISHORE to LCx in 03/2024
- Strong family history for coronary artery disease
- Cataracts, b/l repair
- PVCs
- Emphysema
- Hyperlipidemia
- Hypertension
- Melanoma of skin under left eye- s/p [facility] 2018
- Anxiety
- Acute postop blood loss anemia- stable, no transfusion
- Acute postop atelectasis
- Acute postop hypovolemia with subsequent hypervolemia
- Acute post op atrial fibrillation with RVR
Subjective
-
Date of Service: July 02, 2024
Objective Data
-
Lab Results
07/02/24 03:22
07/02/24 03:22
PT 17.2 Sec (11.4-14.6) H 06/28/24 12:39
INR 1.38 06/28/24 12:39
APTT 28.1 Sec (23.4-35.0) 06/28/24 12:39
Vital Signs
Vital Signs
Temp Pulse Resp BP Pulse Ox
98.5 F 66 16 124/65 97
07/02/24 03:15 07/02/24 03:15 07/02/24 03:15 07/02/24 03:15 07/02/24 03:15
CT Intake/Output/Weight
07/01/24 07/01/24 07/02/24
06:59 18:59 06:59
Intake Total 110 / 330 40 / 370 330 / 370
Output Total 100 / 795 200 / 650 450 / 650
Balance 10 / -465 -160 / -280 -120 / -280
SaO2: 97
Physical Exam
-
General: Awake and Oriented
Cardiovascular: Regular rate & rhythm, No Murmurs and No Rub
Respiratory: Clear and Equal
Sternum: Stable
Incision: Clean and Dry
Extremities: No Edema
Data Reviewed
-
Lab Results: Results Reviewed
Medications: Active Meds Reviewed
Chest X-Ray: Report Reviewed
ECG: Report Reviewed
[2024-07-02] MEDS: TYLENOL PO (06:41)
--- NOTE | 2024-07-02 08:00 | PTCARENOTE ---
Resumed care of patient from previous RN. OOB in chair at time of assessment. No reports of pain. VSS. SR/SB on monitor. at bedside. AAOx3. drowsy. 97% RA. +bowel sounds. No BM. clear yellow urine. weak pulses. Bilateral lower extremity
edema. All surgical sites c/d/i. Right I.J. Cordis will continue to monitor. hopeful d/c this afternoon.
[2024-07-02] MEDS: PLAVIX 75 MG PO (08:34)
[2024-07-02] MEDS: MAGNESIUM OXIDE 500 MG PO ×2 (08:34→20:51)
[2024-07-02] MEDS: CALCIUM CHLORIDE 10% SYRINGE 60 MG IV (08:34)
[2024-07-02] MEDS: PROTONIX 40 MG PO (08:34)
[2024-07-02] MEDS: MUCINEX 600 MG PO ×2 (08:34→20:52)
[2024-07-02] MEDS: SENOKOT-S 1 TABLET PO ×2 (08:35→20:52)
[2024-07-02] MEDS: MIRALAX 17 GRAMS TUBE (08:35)
[2024-07-02] MEDS: NEURONTIN 100 MG PO ×3 (08:35→21:56)
[2024-07-02] MEDS: LOW STRENGTH ASPIRIN 81 MG PO (08:35)
[2024-07-02] MEDS: TOPROL XL 12.5 MG PO (08:35)
[2024-07-02] MEDS: PACERONE 200 MG PO ×3 (08:35→21:56)
[2024-07-02] MEDS: LASIX 40 MG IV ×2 (08:35→15:28)
[2024-07-02] MEDS: LIDOCAINE 4% PATCH TOPICAL (08:36)
[2024-07-02] MEDS: BACTROBAN 2% OINTMENT 1 APPLIC NASAL (08:36)
[2024-07-02] MEDS: NSS IV (08:36)
--- NOTE | 2024-07-02 09:28 | PTCARENOTE ---
patient back into AFIB while urinating. SINTER PRESS OPERATOR made aware.
--- NOTE | 2024-07-02 09:33 | W.PN.CD ---
Today's Communication / Plan
-
-Continue amiodarone and Toprol-XL.
-Recommend monitoring on telemetry and additional day; if no recurrence, recommend heart monitor on discharge to assess for recurrent A-fib.
-Will need systemic anticoagulation if recurrence of A-fib.
Impression / Plan
-
I/P: 74M with HTN, HLD, emphysema, melanoma, current smoker, and strong family history of coronary artery disease who had an abnormal stress test which prompted cardiac catheterization which found multivessel disease. He is here s/p CABG.
Outpatient Powder Blender And Pourer: Dr. Zarco
Post-op atrial fibrillation with RVR
-Single occurrence of PAF yesterday morning; RVR also associated with rate-related LBBB.
-Remains hemodynamically stable.
-Continue amiodarone and Toprol-XL.
-Recommend monitoring on telemetry and additional day; if no recurrence, recommend heart monitor on discharge to assess for recurrent A-fib.
-Will need systemic anticoagulation if recurrence of A-fib.
CAD S/P CABG x 5 (In situ DIETRICH to LAD proper sequential to largest diagonal distally, Ao to RSVG to both OM daughter branches, Ao to RSVG to LPDA) with MATTHEW clip by Dr. Majano 06/28/2024
-Pre LVEF 60%, post 60%
-The sequential graft to the mid LAD did have significant circumferential calcification requiring a coronary endarterectomy
-sinus on EKG and tele
-continue ASA, Plavix, statin, metoprolol
HTN
-continue metoprolol
-controlled
HLD, goal LDL < 55, continue rosuvastatin 20mg
Current smoker - cessation recommended
Physical Exam
Vital Signs/Labs
Vital Signs
Temp Pulse Resp BP Pulse Ox
98 F 65 18 130/65 97
07/02/24 08:00 07/02/24 08:00 07/02/24 08:00 07/02/24 07:14 07/02/24 08:00
07/01/24 07/02/24 07/03/24
06:59 06:59 06:59
Actual Weight 78 kg 79.7 kg
07/02/24 03:22
07/02/24 03:22
PT 17.2 Sec (11.4-14.6) H 06/28/24 12:39
INR 1.38 06/28/24 12:39
APTT 28.1 Sec (23.4-35.0) 06/28/24 12:39
Magnesium 2.2 mg/dl (1.6-2.3) 07/02/24 03:22
Triglycerides 76 mg/dl (10-149) 06/29/24 03:09
LDL Cholesterol, Calc 24 mg/dl 06/29/24 03:09
VLDL Cholesterol, Calc 15 mg/dl (0-30) 06/29/24 03:09
HDL Cholesterol 46 mg/dl 06/29/24 03:09
Physical Exam
Constitutional: No acute distress and Comfortable
EENT: Anicteric
Cardiovascular: Rhythm & rate is regular, Pedal edema is absent, Systolic murmur absent and S1S2 is normal
Respiratory: Respiratory effort normal and Lungs clear to auscul.
GI: Soft
Neuro/Psych: AO x 3
Other: Skin (Warm, dry, intact)
Data Reviewed
-
Date of Service: July 02, 2024
EKG: Tracing Personally Visualized and interpreted (Telemetry: Sinus rhythm)
Labs: Labs Reviewed by me
Critical Care Time (in minutes): 33
[2024-07-02] MEDS: LOPRESSOR 12.5 MG PO (10:03)
[2024-07-02] MEDS: CORDARONE 103 MG IV (10:41)
--- NOTE | 2024-07-02 12:07 | PTCARENOTE ---
converted post amio bolus. transferred to IVU. room 2252
[2024-07-02] MEDS: TYLENOL 1000 MG PO ×2 (14:14→21:56)
[2024-07-02] MEDS: FLUSH (NSS) 1 FLUSH IV (15:29)
--- NOTE | 2024-07-02 15:51 | CM ---
Reviewed chart. Mr. Corral was transferred to IVU. Telephone call to Luz ,([phone]) to check on co-ay for Eliquis 5 mg po bid. He has a $573.00 deductible that has to be met. So his first script would be $500.00. After he has met his
deductible he will have to pay 20% of the cost of the medication, approx. $115.00 a month.Met with and Mrs. Corral to review discharge plans, Reviewed his co-pay information with him. He is agreeable to the co-pay. Reviewed the one month
free coupon placed in his red discharge folder. He states he has ambulated in the hallway. He states he is feeling tired. He states prior to admission he resides with his spouse in a two story home with one step to enter. He has a full flight of
steps to get to bedroom/full bathroom. He has a powder room on the first floor. Prior to admission he was independent with ambulation and adls. He does not have any DME in the home. He has a prescription plan with [employer] and uses [facility]. His spouse states he is planning on staying on the first floor when he gets home. He is going to sleep in the recliner. We reviewed a home visit by the Transitional Care Nurse. He is agreeable to a home visit. His spouse will be home to
assist in his care if needed. Medical work-up in progress. The discharge plan is to return home with hie spouse and a home visit by the Transitional Care Nurse when medically stable.
[2024-07-02] MEDS: CRESTOR 20 MG PO (17:36)
[2024-07-02] MEDS: ROXICODONE 5 MG PO (20:51)
[2024-07-02] MEDS: TOPROL XL 25 MG PO (20:52)
[2024-07-02] MEDS: KCL 20 MEQ PO (21:55)
[2024-07-03 03:48] VITALS: BP 118/62
[2024-07-03] MEDS: ROXICODONE 5 MG PO (03:52)
[2024-07-03 03:56] VITALS: BMI 27.2
--- NOTE | 2024-07-03 05:48 | PTCARENOTE ---
Pt NSR on monitor. C/o CP 08/17. PRN meds given with positive result. Pt ambulates with x 1 assist. Safety measures in place
--- NOTE | 2024-07-03 06:03 | W.PN.CT ---
Today's Communication / Plan
-
-07/02 reoccurance of afib, BB increased, amio bolus given -> convered to NSR, planning to begin Eliquis today
-comfortable on RA
-voiding
-current meds (ASA, Plavix, Crestor, Lopressor 12.5 mg, Amio, Protonix)
-encourage IS, OOB
-dispo planning, hopeful home today
Assessment / Plan
-
- Mv-CAD - s/p CABG x5 (In situ DIETRICH to LAD proper sequential to largest diagonal distally, Ao to RSVG to both OM daughter branches, Ao to RSVG to LPDA); Coronary endarterectomy of the mid LAD; LAAE [35 mm clip] by Dr. Majano on 06/28/24, pod #5
- Intraop DARINEL: LVEF 60% pre and postop with no wma.
- Significant multivessel coronary disease involving the proximal LAD
- S/p KISHORE to LCx in 03/2024
- Strong family history for coronary artery disease
- Cataracts, b/l repair
- PVCs
- Emphysema
- Hyperlipidemia
- Hypertension
- Melanoma of skin under left eye- s/p Mohs 2018
- Anxiety
- Acute postop blood loss anemia- stable, no transfusion
- Acute postop atelectasis
- Acute postop hypovolemia with subsequent hypervolemia
- Acute post op atrial fibrillation with RVR
Discussed patient care with: Care Team
Subjective
-
Date of Service: July 03, 2024
Objective Data
-
Lab Results
07/02/24 03:22
07/02/24 03:22
PT 17.2 Sec (11.4-14.6) H 06/28/24 12:39
INR 1.38 06/28/24 12:39
APTT 28.1 Sec (23.4-35.0) 06/28/24 12:39
Vital Signs
Vital Signs
Temp Pulse Resp BP Pulse Ox
98.2 F 69 20 99/59 95
07/02/24 19:34 07/02/24 20:52 07/02/24 19:34 07/02/24 20:52 07/02/24 19:34
CT Intake/Output/Weight
07/02/24 07/02/24 07/03/24
06:59 18:59 06:59
Intake Total 330 / 370 100 / 100
Output Total 450 / 650 2000 / 2000
Balance -120 / -280 -1900 / -1900
SaO2: 95
Physical Exam
-
General: Awake, Oriented and AOx3
Cardiovascular: Regular rate & rhythm
Respiratory: Clear and Equal
Sternum: Stable
Incision: Clean, Dry and Intact
Extremities: No Edema
Data Reviewed
-
Lab Results: Results Reviewed
Medications: Active Meds Reviewed
Chest X-Ray: Image Reviewed
Vital Signs / Labs
-
Vital Signs and Labs:
Temp Pulse Resp BP Pulse Ox
97.6 F 59 18 118/62 96
07/03/24 03:48 07/03/24 04:00 07/03/24 03:48 07/03/24 03:48 07/03/24 03:48
07/02/24 03:22
07/02/24 03:22
[2024-07-03] MEDS: TYLENOL 1000 MG PO (06:29)
[2024-07-03 07:38] LABS: Hematocrit 23.1 % (39.0-52.0); Hemoglobin 8.1 g/dL (13.0-18.0); Mean Corp Hgb Conc. 35.1 g/dL (33.0-37.0); Mean Corpuscular Hgb 33.1 pg (27.0-31.0); Mean Corpuscular Volume 94.3 fL (80.0-94.0); Mean Platelet Volume 10.1 fL (7.4-10.4); Platelet Count 192 10^3/uL (130-400); Red Blood Cell Count 2.45 10^6/uL (4.70-6.10); White Blood Cell Count 7.6 10^3/uL (4.8-10.8)
[2024-07-03 07:47] VITALS: BP 108/72
[2024-07-03] MEDS: ELIQUIS 5 MG PO (07:51)
[2024-07-03] MEDS: TOPROL XL 25 MG PO (07:51)
[2024-07-03] MEDS: LOW STRENGTH ASPIRIN 81 MG PO (07:52)
[2024-07-03] MEDS: MUCINEX 600 MG PO (07:52)
[2024-07-03] MEDS: PROTONIX 40 MG PO (07:52)
[2024-07-03] MEDS: PACERONE 200 MG PO (07:52)
[2024-07-03] MEDS: NEURONTIN 100 MG PO (07:52)
[2024-07-03] MEDS: MAGNESIUM OXIDE 500 MG PO (07:52)
[2024-07-03] MEDS: SENOKOT-S 1 TABLET PO (07:52)
[2024-07-03] MEDS: LASIX 40 MG IV (07:53)
[2024-07-03 07:55] LABS: Blood Urea Nitrogen 34 mg/dl (9-20); Calcium 8.4 mg/dl (8.4-10.2); Carbon Dioxide 28 mmol/L (22-30); Chloride 100 mmol/L (98-107); Estimated Creatinine Clearance 67 ml/min; Glucose 98 mg/dl (70-99); Potassium 4.2 mmol/L (3.5-5.1); Sodium 131 mmol/L (135-145); eGFR > 60.00
[2024-07-03] MEDS: LIDOCAINE 4% PATCH TOPICAL (08:01)
[2024-07-03] MEDS: NSS IV (08:03)
[2024-07-03] MEDS: MIRALAX TUBE (08:03)
--- NOTE | 2024-07-03 08:49 | W.PN.CD ---
Today's Communication / Plan
-
-Patient had recurrence of PAF overnight.
-Continue amiodarone and Toprol-XL.
-Started on Eliquis for systemic anticoagulation; Plavix discontinued.
-Counseled again today on the importance of smoking cessation.
-Outpatient follow-up with his primary Field Aide.
Impression / Plan
-
I/P: 74M with HTN, HLD, emphysema, melanoma, current smoker, and strong family history of coronary artery disease who had an abnormal stress test which prompted cardiac catheterization which found multivessel disease. He is here s/p CABG.
Outpatient Field Aide: Dr. Zarco
Post-op atrial fibrillation with RVR
-Patient had recurrence of PAF overnight.
-Hemodynamically stable.
-Continue amiodarone and Toprol-XL.
-Started on Eliquis for systemic anticoagulation; Plavix discontinued.
CAD S/P CABG x 5 (In situ DIETRICH to LAD proper sequential to largest diagonal distally, Ao to RSVG to both OM daughter branches, Ao to RSVG to LPDA) with MATTHEW clip by Dr. Majano 06/28/2024
-Pre LVEF 60%, post 60%
-The sequential graft to the mid LAD did have significant circumferential calcification requiring a coronary endarterectomy
-continue ASA, statin, metoprolol
HTN
-continue metoprolol
-controlled
HLD, goal LDL < 55, continue rosuvastatin 20mg
Current smoker - Counseled again today on the importance of smoking cessation.
Physical Exam
Vital Signs/Labs
Vital Signs
Temp Pulse Resp BP Pulse Ox
97.7 F 59 18 118/62 96
07/03/24 08:00 07/03/24 07:00 07/03/24 08:00 07/03/24 03:48 07/03/24 08:00
07/02/24 07/03/24 07/04/24
06:59 06:59 06:59
Actual Weight 79.7 kg 78.8 kg
07/03/24 07:29
07/03/24 07:29
PT 17.2 Sec (11.4-14.6) H 06/28/24 12:39
INR 1.38 06/28/24 12:39
APTT 28.1 Sec (23.4-35.0) 06/28/24 12:39
Magnesium 2.0 mg/dl (1.6-2.3) 07/03/24 07:29
Triglycerides 76 mg/dl (10-149) 06/29/24 03:09
LDL Cholesterol, Calc 24 mg/dl 06/29/24 03:09
VLDL Cholesterol, Calc 15 mg/dl (0-30) 06/29/24 03:09
HDL Cholesterol 46 mg/dl 06/29/24 03:09
Physical Exam
Constitutional: No acute distress and Comfortable
EENT: Anicteric
Cardiovascular: Rhythm & rate is regular, Systolic murmur absent, Pedal edema present (Trace) and S1S2 is normal
Respiratory: Respiratory effort normal and Lungs clear to auscul.
GI: Soft
Neuro/Psych: AO x 3
Other: Skin (Warm, dry, intact)
Data Reviewed
-
Date of Service: July 03, 2024
EKG: Tracing Personally Visualized and interpreted (Telemetry: Sinus rhythm)
Medical Tests (PFT, Pathology etc): Discussed with Physician (CT Surgery team), Discussed with Nurse and Discussed with Patient
Labs: Labs Reviewed by me
--- NOTE | 2024-07-03 09:26 | W.DCSUMMARY ---
Discharge Summary
Discharge Data
Date of Admission: 06/28/24
Date of Discharge: 07/03/24
Total time spent discharging patient (in min): 45
-
Pending Results: No
Hospital Course
Primary care physician:
Dr. Moore
Outpatient line palletizer:
Dr. Zarco
Inpatient consultants:
CBC, scrap iron cutter
Procedures:
1. Coronary artery bypass grafting x 5 (In situ DIETRICH to LAD proper sequential to largest diagonal distally, Ao to RSVG to both OM daughter branches, Ao to RSVG to LPDA)
Primary Diagnosis:
1. 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
Secondary Diagnoses:
1. Postop atrial fibrillation started on eliquis
2. Postop hyponatremia secondary to fluid overload
3. Cataracts
4. PVCs
5. Emphysema
6. Hyperlipidemia
7. Hypertension
8. Melanoma of skin under left eye
HPI: 74-year-old male with multivessel disease seen in the office for second opinion by Dr. Majano presented electively on 06/28 for a CABG.
Hospital course: Patient was admitted on 06/28 for a CABG x 5. Postoperatively he returned to the CVICU on Levophed, Precedex, and insulin infusions. Patient was weaned off Precedex and was extubated by 1630. On 06/29 postoperative day 1 patient
was doing well heart rate was 70s to 80s and tolerating beta-blockers left chest tube was removed and patient was transitioned off insulin infusions and downgraded to telemetry status. On 06/30 postoperative day 2 patient's vital signs remained
stable temporary pacing wire and mediastinal chest tubes were removed without issue. On 07/01 postoperative day 3 patient had a episode of atrial fibrillation with RVR for about 3 hours. He was given an amio bolus and infusion per protocol along
with up titration of his beta-blockers. After the interventions patient converted back into sinus bradycardia. On 07/02 postoperative day 4 patient was getting diuresed with Lasix 40 mg IV twice daily however he went back into atrial fibrillation
for another hour. Patient was given another amiodarone bolus and his beta-blockers were uptitrated again and he converted back to sinus rhythm. On 07/03 postoperative day 5 patient was started on Eliquis 5 mg twice daily for anticoagulation
secondary to the atrial fibrillation. Per Dr. Majano he should continue anticoagulation for 3 months. Patient was tolerating his medication regimen and was deemed stable for discharge home. 2 view chest x-ray remained stable.
Home medication changes:
See below
Discharge Plan
-
Patient Disposition: Home (Routine Discharge)
Discharge Diagnosis/Procedures: Coronary artery bypass grafting x 5 (In situ DIETRICH to LAD proper sequential to largest diagonal distally, Ao to RSVG to both OM daughter branches, Ao to RSVG to LPDA)
Condition: Good
Diet: Low Cholesterol and Restrict fluids to 64 oz
Activity: No strenuous activity
Driving Restrictions: No driving
Bathing Restrictions: OK to Shower
Blood Work: CBC/BMP/Mg in one week
Other Services: Cardiac Rehab
Specialty Instructions: Weigh Daily- Call MD for wt gain/loss 3 lbs overnight/5 lbs in 1 week
Activity Restrictions/Additional Instructions:
Please Contact [facility] to schedule Cardiac Rehab [phone].
ACTIVITY:
-No strenuous activity: no heavy lifting, pushing, pulling anything over 15 pounds for one month
-continue to use stairs as tolerated
DRIVING RESTRICTIONS:
-No driving for one month or until approved by your surgeon
WOUND CARE:
-Shower daily. Use soap & water.
-No lotions, creams or powders on incision area.
DIET:
-continue a low fat/low cholesterol diet.
-IF you are diabetic, continue carb controlled diet.
CARDIAC REHAB:
-Please make appointment to start in 5-6 weeks with your local hospital program. (See Cardiac Rehabilitation Discharge Booklet).
SPECIALTY INSTRUCTIONS:
-Weigh yourself daily. Call your physician for any weight gain/loss of 3 lbs overnight or 5 lbs in one week.
-REPORT any clicking noise or uneven appearance of your sternum to your surgeon immediately.
-If you smoke, you are instructed to quit. The [place] smoking hotline phone number is [phone]
Referrals:
CT Transitional Care Nurse [Outside] (The Cardiothoracic Transitional Care Nurse will call you to set up a visit in 1-2 days.)
Conor Nowak MD [Active] - in four to six weeks (Needs full PFTs and 6 mon walk test prior to appointment. Post CABG. favor waiting 2 months prior to appointment, )
Froylan Zarco DO [Non-Admitting Privileges] - 09/05/24 9:30 am
Pan Moore DO [Family Provider] -
Ye Majano MD [Active] - 07/31/24 1:30 pm
()
Additional Discharge Medication Instructions: please take amiodarone 200mg twice a day for 2 weeks and then 200mg daily until specified otherwise
Prescriptions:
New
acetaminophen 325 mg Tablet
650 mg PO Q4HPRN PRN (Reason: mild pain,headache,temp >101F ) Qty: 0 0RF
amiodarone 200 mg Tablet
200 mg PO BID Qty: 90 0RF
metoprolol succinate 25 mg Tablet Extended Release 24 Hr
25 mg PO BID Qty: 60 0RF
rosuvastatin 20 mg Tablet
20 mg PO QPM Qty: 0 0RF
Eliquis 5 mg Tablet
5 mg PO BID Qty: 60 1RF
potassium chloride 20 mEq Tablet,Er Particles/Crystals
40 meq PO DAILY Qty: 7 0RF
oxycodone 5 mg Tablet
2.5 mg PO Q4HPRN PRN (Reason: severe pain) Qty: 10 0RF
furosemide [Lasix] 40 mg tablet
40 mg PO DAILY Qty: 7 0RF
Continued
cholecalciferol (vitamin D3) [Vitamin D3] 25 mcg (1,000 unit) Capsule
25 mcg PO DAILY
aspirin 81 mg Capsule
81 mg PO DAILY
Discontinued
metoprolol succinate 25 mg Tablet Extended Release 24 Hr
25 mg PO DAILY
rosuvastatin 5 mg Tablet
5 mg PO DAILY
prasugrel HCl 10 mg Tablet
10 mg PO DAILY
Discharge Orders:
Discharge Patient (As Directed); Ordered 07/03/24
Ordered By: Brigitte Yoon
Care Plan Goals
Care Plan Goals:
Problem: Readiness for enhanced knowledge related to diagnosis and treatment plan
Goal: Understand your diagnosis and treatment plan needs, including medications if applicable.
Instructions: Know your diagnosis, underlying causes and treatment plan options, including medications if applicable. Consult with your health care team to learn about your diagnosis and treatment plan, including medications if applicable.
Discharge Date and Time
Print Language: ISRAELI
--- NOTE | 2024-07-03 10:42 | CM ---
Reviewed chart. Met with and Mrs. Corral to review discharge plans. He states he is felling well and maybe able to go home soon. We reviewed a home visit by the Transitional Care Nurse. He is agreeable to a home visit. Prior to admission
he resides with his spouse in a two story home with one step to enter. He has to go up a full flight of steps to get to bedroom/full bathroom. He has a powder room on the first floor. Prior to admission he was independent with ambulation and
adls. He does not have any DME in the home. He has a prescription plan with [employer] and uses [facility]. He is planning on staying on the first floor and sleeping in a recliner. Medical work-up in progress. The discharge plan is to return
home with his spouse and a home visit by the Transitional Care Nurse when medically stable.
[2024-07-03 11:39] VITALS: BP 100/58; BP 122/61; PULSE 57; O2SAT 95
--- NOTE | 2024-07-03 13:05 | PTCARENOTE ---
~[id number]: Patient AOx4, SB 50s on tele, RA. Pt OOB with Ax1 this AM. Labs obtained off cordis. Cordis to be removed when patient gets back in bed after breakfast, per order. Patient states a 3/10 incisional pain at this time but does not request
pain meds. 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 Chest tube sites covered and dressing is CDI.. All needs met at this time, call meehan within reach.
~[id number]: Patient went down for CXR per order. Patient completed steps with cardiac rehab and then showered per d/c protocol. Discharge paperwork reviewed with patient and spouse. Verbal understandign received. All questions answered. IV and tele
monitor removed. Patient brought down to lobby via wheelchair and nursing staff.
== END 2024-07-03 13:42 | disposition home or self-care (01) | DRG 236 ==
LOC: IVU 04:55
PROVIDERS: Clinical Nurse Specialist Acute Care; Nurse Practitioner; Physician Assistant Medical; ADMITTING PHYSICIAN Thoracic Surgery (Cardiothoracic Vascular Surgery); CONSULT PHYSICIAN Internal Medicine; FAMILY PHYSICIAN Family Medicine; OTHER PHYSICIAN Internal Medicine Cardiovascular Disease
PROC: 021209W Bypass Coronary Artery, Three Arteries from Aorta with Autologous Venous Tissue, Open Approach (ICD-10-PCS; 2024-06-28)
PROC: 02L70CK Occlusion of Left Atrial Appendage with Extraluminal Device, Open Approach (ICD-10-PCS; 2024-06-28)
PROC: 06BP4ZZ Excision of Right Saphenous Vein, Percutaneous Endoscopic Approach (ICD-10-PCS; 2024-06-28)
PROC: B24BZZ4 Ultrasonography of Heart with Aorta, Transesophageal (ICD-10-PCS; 2024-06-28)
PROC: 5A1221Z Performance of Cardiac Output, Continuous (ICD-10-PCS; 2024-06-28)
PROC: 02110Z9 Bypass Coronary Artery, Two Arteries from Left Internal Mammary, Open Approach (ICD-10-PCS; 2024-06-28)
PROC: 02C00ZZ Extirpation of Matter from Coronary Artery, One Artery, Open Approach (ICD-10-PCS; 2024-06-28)
DX: I25.10 Atherosclerotic heart disease of native coronary artery without angina pectoris (principal); E87.1 Hypo-osmolality and hyponatremia; E87.70 Fluid overload, unspecified; I48.91 Unspecified atrial fibrillation; H26.9 Unspecified cataract; I49.3 Ventricular premature depolarization; J43.9 Emphysema, unspecified; E78.5 Hyperlipidemia, unspecified; I10 Essential (primary) hypertension; C43.9 Malignant melanoma of skin, unspecified; Z79.82 Long term (current) use of aspirin; Z85.820 Personal history of malignant melanoma of skin; F41.9 Anxiety disorder, unspecified; Z82.5 Family history of asthma and other chronic lower respiratory diseases; F17.200 Nicotine dependence, unspecified, uncomplicated; Z82.49 Family history of ischemic heart disease and other diseases of the circulatory system; Z95.5 Presence of coronary angioplasty implant and graft
CPT/HCPCS: 36415; 71045; 71046; 71250; 80048; 80053; 80061; 81003; 81015; 82248; 82330; 82565; 82805; 82947; 82962; 83036; 83735; 84132; 84302; 84520; 85014; 85018; 85025; 85027; 85049; 85610; 85730; 86850; 86900; 86901; 86920; 87070; 87086; 93005; 93880; 94002; 94010; 94060; 99406; J2916